=== PATIENT | female | born 1965 | race Caucasian/White ===

== ENCOUNTER 2020-04-02 05:30 | Inpatient (IN) | payer MEDICARE ==
[2020-04-02] MEDS ORDERED: Fentanyl 100 MCG/2 ML VIAL ONE (05:34)
[2020-04-02] MEDS ORDERED: Propofol 1,000 MG/100 ML VIAL IV ONE (05:38)
[2020-04-02 05:43] LABS: Analyzer IN Cardio ER; Base Excess (BEa) -3.3 mEq/L (-2.0 to +3.0); CO2 Tension 52.5 mmHg (35.0-45.0); Calcium, Ionized (arterial) 1.19 mmol/L (1.12-1.30); Carboxyhemoglobin (COHb) 1.5 gm% (0.0-3.0); O2 Tension (PaO2), arterial 147.5 mmHg (80.0-100.0); Potassium - ABG Lab 4.19 mmol/L (3.70-5.30); pH, Arterial 7.28 (7.35-7.45)
[2020-04-02 05:46] LABS: ALV-art Gradient 143.375 mmHg (0-20); Puncture Site LRA
[2020-04-02] MEDS ORDERED: Sodium Bicarb 50 MEQ/50 ML Abboject 8.4% SYRINGE ONE (06:29)
--- NOTE | 2020-04-02 07:16 | PDOC.HHP ---
Hospitalist HPI - History of Present Illness AMS History of Present Illness: Patient is currently intubated/sedated and unable to provide account of events. History is obtained from EHR review and communication with medical providers. Patient with apparent history of anxiety/depression, bipolar disorder, schizophrenia, rediculopathy, substance abuse, prior hospitalizations due to AMS in setting of substance abuse presents as a transfer from outside facility for evaluation of AMS after she presented there for evaluation of drug overdose. Per record based on statement from her daughter "she has as problem taking too many of her prescriptions. It is documented that on initial presentation to outside facility she had a "bag full of a large quantity of different medications, several of which are sedating." Per report when first found there were three open bottles of medications including pregabalin (100 mg), carbamazepime 200 mg & methocarbamol of unknown mg. Patient appeared to be awake but lethargic and unable to follow commands hence she was intubated for airway protection. Initial work up reveals CBC, CMP, urine, chest x-ray, EKG without major abnormality. Urine toxicology is positive for trycyclics and benzos. VS are stable with sedation and mechanical ventilation. Hospitalist ROS - Review of Systems ROS unobtainable: due to endotracheal tube Hospitalist History - Past Medical History Cardiac: reports: [place] Psych: reports: Anxiety, Bipolar, Depression, Schizophrenia Musculoskeletal: reports: Other (Apparent hx of radiculopathy) - Social History Drugs: reports: Other (Possible benzo abuse) - Exam General Appearance: NAD General - other findings: Intubated/sedated Eye: PERRL, anicteric sclera ENT: normocephalic atraumatic, no oropharyngeal lesions, moist mucosa ENT - other findings: Intubated Heart: RRR, no murmur, no gallops, no rubs, normal peripheral pulses Respiratory: CTAB, no wheezes, no rales, no ronchi, normal chest expansion, no tachypnea, normal percussion Respiratory - other findings: Intubated Gastrointestinal: soft, non-distended, normal bowel sounds Extremities: no cyanosis, no clubbing, no edema Neurological - other findings: Sedated Psychiatric - other findings: Sedated/intubated Hospitalist Results - Labs Lab results: ABG pH 7.28 (7.35-7.45) L 04/02/20 05:39 ABG pCO2 52.5 mmHg (35.0-45.0) H 04/02/20 05:39 ABG pO2 147.5 mmHg (80.0-100.0) H 04/02/20 05:39 Additional comment: CBC, CMP reviewed; no major concerning findings Hospitalist H&P A/P - Plan Plan: A/P: Patient with PMH of anxiety/depression, bipolar disorder, possible schizophrenia & substance abuse presents intubated for airway protection in setting of drug overdose. # Toxic encephalopathy: In setting of substance abuse and drug overdose. Patient with similar presentation in the past per review of record. Currently intubated/sedated for airway protection. No significant metabolic abnormality noted on initial work up. Pulmonary cc service has been consulted for assistance with mechanical ventilation. Can likely extubate soon as drug overdose continues to metabolize. Continue with IVFs for now. # Anxiety/depression: Holding all medications. Will have to further investigate purpose of overdose and rule out suicidal intent. Will likely need psychiatry evaluation. # Radiculopathy: Holding all medications. See above. DVT PPX: Lovenox FULL CODE CCT: 45 min
[2020-04-02 07:19] LABS: SARS-CoV-2 NAA Rapid Test Not Detected (NotDetected)
[2020-04-02] MEDS: Sodium Chloride 0.9% 1,000 ML IV SCH ×2 (07:56→20:19)
[2020-04-02] MEDS ORDERED: Morphine 2 MG/ML VIAL SLOW IVP PRN (08:00)
[2020-04-02] MEDS ORDERED: DISCONTINUE PREVIOUS NARCOTIC PAIN MEDICATIONS AND BENZODIAZEPINES FS SCH (08:00)
[2020-04-02] MEDS ORDERED: Propofol BOLUS 1,000 MG/100 ML VIAL IV PRN (08:00)
[2020-04-02] MEDS ORDERED: Lorazepam 2 MG/ML VIAL SLOW IVP PRN (08:00)
[2020-04-02] MEDS ORDERED: Propofol 1,000 MG/100 ML VIAL IV PRN (08:00)
[2020-04-02] MEDS ORDERED: fentaNYL Citrate/PF 2,000 MCG in Sodium Chloride 0.9% 60 ML IV SCH (08:00)
[2020-04-02] MEDS ORDERED: Fentanyl BOLUS 250 ML IVPB PRN (08:00)
--- NOTE | 2020-04-02 08:41 | RAD ---
PORTABLE CHEST 1 VIEW: Date: 04/02/2020 Time: 0521 hours HISTORY: Respiratory failure. FINDINGS/IMPRESSION: There has been interval placement of a nasogastric tube with tip in the projection of the gastric fun dus since earlier exam at 0413 hours same date. Endotracheal tube remains in place. There is mild sca rring versus atelectatic change in the lingula. No lobar consolidation, pneumothoraces, or large effu sions are seen. POS: OFF
[2020-04-02] MEDS: Enoxaparin Sodium 40 MG/0.4 ML SYRINGE SC SCH (10:04)
--- NOTE | 2020-04-02 15:15 | CON ---
DATE OF CONSULTATION: 04/02/2020 DIAGNOSIS: Overdose. HISTORY OF PRESENT ILLNESS: Ms. Barillas is a 54-year-old female, who was transferred from an outside facility with altered mental status. The exact preceding events are unclear, but apparently, she was found to be unresponsive by some person, who notified the EMS. Upon their arrival, the patient was lethargic, could not answer questions. Medications found near her included bottles of pregabalin, carbamazepine, and methocarbamol. Exact number ingested is unknown. She was transferred to the [facility], at which time, her GCS was reported to be 8. She was intubated for airway protection. I have not been able to speak to the family, but reportedly this is a pattern she has had before with prior overdose ingestions. This includes a prior admission here at [facility] in February 2017 and history and physical at that time described events prior to that. The cause for this event is unknown. Family is not available at this time. I have reviewed the available medical record. SOCIAL HISTORY: The patient is a 54-year-old female. Previous record has noted history of tobacco abuse. ALLERGIES: SHE HAS A REPORTED INTOLERANCE TO PENICILLIN. MEDICATIONS: Her home medication list is reported to include; 1. Lyrica 100 mg daily. 2. Methocarbamol 500 mg daily. 3. Carbamazepine 600 mg b.i.d. 4. Olanzapine 15 mg daily. 5. Fluconazole 100 mg daily. 6. Valacyclovir 2000 mg b.i.d. 7. Baclofen 20 mg t.i.d. 8. Meloxicam 7.5 mg daily. 9. ProAir p.r.n. 10. Diphenhydramine p.r.n. I am not sure how many of these medicines are on her active medication list versus the historical record. PAST HISTORY: Remarkable for history of multisubstance abuse including overdose events, anxiety, bipolar disease, schizophrenia, spinal stenosis with radiculopathy. She has smoking history with unknown COPD. There is no known history of cardiac disease, kidney or liver disease. There is no known history of malignancy or stroke. REVIEW OF SYSTEMS: Unobtainable due to her intubated status. FAMILY HISTORY: Unobtainable/noncontributory. PHYSICAL EXAMINATION: VITAL SIGNS: Current blood pressure 129/78, heart rate 74, respiratory rate 28, and saturation 99%. GENERAL: She is orally intubated. Eyes are open and she will follow simple commands including gripping her hands and moving of her feet. I cannot get her to nod or shake her head to answer questions. HEENT: Pupils are reactive. Oropharynx cannot be evaluated due to endotracheal tube. NECK: Shows no adenopathy or JVD. LUNGS: Show rhonchi. She has very quiet wheezes . HEART: Regular rate and rhythm. There is no murmur. ABDOMEN: Soft. There is no organomegaly. Bowel sounds are normal. EXTREMITIES: There is no edema. NEUROLOGIC: She has no focal neurologic findings. LABORATORY DATA: Blood gas on the ventilator showed a pH of 7.28 with CO2 of 52, pO2 of 145 and bicarbonate of 24. Her lithium level is reported at less than 0.1. COVID test was negative. She is reported to have had lab at an outside facility, but I do not have access to that. IMPRESSION: 1. Overdose, presumed multisubstance. The patient is reported to have had open bottles of lithium, carbamazepine, and pregabalin are presumed most likely since the bottles were open, but her lithium level is low. She is awake enough to at least respond somewhat appropriately and we will pursue weaning attempts. 2. History of bipolar disease and schizophrenia. 3. History of lumbar stenosis with chronic pain. 4. History of tobacco abuse. PLAN: She is admitted currently to the intensive care unit, receiving ventilatory support. She is now awakening and will follow simple commands. I have switched her to spontaneous breathing mode and she has spontaneous efforts of as much as 750. Oxygen saturation is good. She is not using accessory muscles. There is no obvious consolidation on her x-ray. I will move toward extubating her this afternoon. She is certainly going to need further psychiatric assessment, possibly to include inpatient treatment following this hospitalization. Critical care, 35 minutes. Job ID: [id number]
[2020-04-02] MEDS ORDERED: Mirtazapine 30 MG TAB PO SCH (21:00)
[2020-04-02] MEDS ORDERED: clonazePAM 1 MG TAB PO SCH (21:00)
[2020-04-02] MEDS ORDERED: Ondansetron PF 4 MG/2 ML Vial IVP PRN (21:17)
[2020-04-03 04:00] LABS: Band 3 % (5-11); Hemoglobin 13.2 g/dL (12.0-16.0); Lymphocytes 6 % (21-51); MDiff Complete? YES; Mean Corpuscular HGB CONC 32.4 g/dL (32.0-36.0); Mean Corpuscular Hemoglobin 31.5 pg (27.0-31.0); Mean Corpuscular Volume 97.3 fL (78.0-98.0); Mean Platelet Volume 7.4 fL (7.4-10.4); Monocytes 9 % (0-10); Neutrophil 82 % (42-75); Platelet Count 161 thou/uL (130-400); Platelet Morphology Comment Appears Adequate; RBC Morphology Normal; Red Blood Cell (RBC) Count 4.17 mill/uL (4.20-5.40); White Blood Cell (WBC) Count 9.1 thou/uL (4.8-10.8)
[2020-04-03 04:10] LABS: ALT (SGPT) 11 U/L (8-55); AST (SGOT) 13 U/L (5-34); Albumin 3.3 g/dL (3.5-5.0); Alkaline Phosphatase 110 U/L (40-110); Anion Gap 14 mmol/L (10-20); BUN (Urea Nitrogen) 12 mg/dL (9.8-20.1); Bilirubin, Total 0.3 mg/dL (0.2-1.2); CK (CPK) 62 U/L (29-168); Calc. Creatinine Clearance 122 mL/min (70-130); Calcium 8.3 mg/dL (7.8-10.44); Carbon Dioxide 24 mmol/L (22-29); Chloride 108 mmol/L (98-107); Globulin 2.3 g/dL (2.4-3.5); Glucose 114 mg/dL (70-105); Potassium 4.2 mmol/L (3.5-5.1); Protein, Total 5.6 g/dL (6.0-8.3); Sodium 142 mmol/L (136-145)
[2020-04-03] MEDS: Acetaminophen 325 MG TAB PO PRN ×3 (04:28→17:10)
[2020-04-03 06:09] VITALS: BMI 29.7
[2020-04-03] MEDS: lamoTRIgine 100 MG TAB PO SCH ×2 (07:09→08:25)
[2020-04-03] MEDS: carBAMazepine 200 MG TAB PO SCH ×2 (07:09→08:25)
[2020-04-03] MEDS: Enoxaparin Sodium 40 MG/0.4 ML SYRINGE SC SCH (08:25)
[2020-04-03] MEDS ORDERED: PARoxetine 20 MG TAB PO SCH ×2 (09:00)
--- NOTE | 2020-04-03 09:28 | PDOC.HOSPP ---
- Subjective Encounter Date: 04/03/20 Encounter Time: 11:20 Subjective: Patient states she had some nausea right after the extubation, some headache right now. No other complaints. Patient denies overdose. States she doesn't remember what happened last night. Denies taking any meds but was found surrounded by pill bottles. History of previous admissions for overuse of Benzodiazepines and tricyclics. - Objective Vital Signs & Weight: Vital Signs (12 hours) Temp Pulse Ox 04/03/20 08:00 97 04/03/20 07:00 98.1 F 04/03/20 04:00 97.9 F 04/03/20 00:00 97.9 F 98 Weight Weight 173 lb 8.061 oz Most Recent Monitor Data Heart Rate from ECG 61 NIBP 109/80 NIBP BP-Mean 89 Respiration from ECG 16 SpO2 97 I&O: 04/02/20 04/03/20 04/04/20 06:59 06:59 06:59 Intake Total 1796 90 Output Total 1230 Balance 566 90 Result Diagrams: 04/03/20 03:32 04/03/20 03:32 Additional Labs: Accuchecks 04/02/20 20:06 POC Glucose 97 Hospitalist ROS - Review of Systems Constitutional: denies: fever, chills Respiratory: denies: cough, shortness of breath Cardiovascular: denies: chest pain, palpitations Gastrointestinal: denies: vomiting, abdominal pain - Medication Medications: Active Medications Generic Name Dose Route Start Last Admin Trade Name Freq PRN Reason Stop Dose Admin Acetaminophen 650 mg 04/03/20 04:19 04/03/20 04:28 Acetaminophen 325 Mg Tab PO 650 mg Q4H PRN Administration Headache/Fever/Mild Pain (1-3) Carbamazepine 200 mg 04/02/20 21:00 04/03/20 08:25 Carbamazepine 200 Mg Tab PO 200 mg BID EUGENE Administration Clonazepam 2 mg 04/02/20 21:00 04/02/20 21:29 Clonazepam 1 Mg Tab PO 2 mg HS EUGENE Administration Enoxaparin Sodium 40 mg 04/02/20 09:00 04/03/20 08:25 Enoxaparin Sodium 40 Mg/0.4 Ml Syringe SC 40 mg 0900 EUGENE Administration Sodium Chloride 1,000 mls @ 75 mls/hr 04/02/20 07:30 12/13/20 20:19 Normal Saline 0.9% IV 1,000 mls .[id number] EUGENE Administration Lamotrigine 200 mg 04/02/20 21:00 04/03/20 08:25 Lamotrigine 100 Mg Tab PO 200 mg BID EUGENE Administration Mirtazapine 30 mg 04/02/20 21:00 04/03/20 07:09 Mirtazapine 30 Mg Tab PO Not Given HS EUGENE Ondansetron HCl 4 mg 04/02/20 21:17 04/02/20 21:25 Ondansetron Pf 4 Mg/2 Ml Vial IVP 4 mg Q6H PRN Administration Nausea/Vomiting Paroxetine HCl 60 mg 04/03/20 09:00 04/03/20 08:25 Paroxetine 20 Mg Tab PO 60 mg DAILY EUGENE Administration - Exam General Appearance: NAD, awake alert ENT: moist mucosa Heart: RRR, no murmur, no gallops, no rubs Respiratory: CTAB, no wheezes, no rales, no ronchi Gastrointestinal: soft, non-tender, non-distended, normal bowel sounds Psychiatric: A&O x 3 Hosp A/P - Plan A/P: Patient with PMH of anxiety/depression, bipolar disorder, possible schizophrenia & substance abuse presents intubated for airway protection in setting of drug overdose. # Toxic encephalopathy: In setting of substance abuse and drug overdose. Patient with similar presentation in the past per review of record. Successfully extubated and medically stable for [facility] eval. Patient UDS positive for benzos and tricyclics which is similar to previous admissions. # Acute respiratory failure due to overdose: resolved, extubated and breathing well on room air # Anxiety/depression: Holding all medications. [facility] evaluation now that medically clear. # Radiculopathy: Holding all medications. See above. DVT PPX: Lovenox FULL CODE
--- NOTE | 2020-04-03 09:47 | PRG ---
DATE OF SERVICE: SUBJECTIVE: This morning, she is awake, alert, and responsive. She was extubated. She is doing well. Denies any pain or discomfort. She wants to go home. She took overdose of multi-substance. OBJECTIVE: VITAL SIGNS: Temperature 98, pulse 64, respiratory rate CHEST: No wheezing. No crackles. CARDIAC: Normal S1, S2. No gallops. ABDOMEN: Soft. IMPRESSION: Overdose and respiratory failure, improved. PLAN: She can be transferred out of the ICU. She has a history of schizophrenia, is ongoing [facility] evaluation. Diet and PT are being ordered. Job ID: [id number]
[2020-04-03] MEDS: Sodium Chloride 0.9% 1,000 ML IV SCH (10:52)
[2020-04-03 16:32] VITALS: BP 107/71; TEMP 97.7
--- NOTE | 2020-04-04 14:31 | DIS ---
DATE OF ADMISSION: 04/02/2020 DATE OF DISCHARGE: 04/03/2020 PRIMARY CARE PHYSICIAN: Ria Vega. REASON FOR ADMISSION: Drug overdose with respiratory depression and intubation. DIAGNOSES AT DISCHARGE: 1. Drug overdose, unintentional, resolved. 2. Respiratory failure, resolved. 3. Chronic anxiety and depression. 4. Chronic radiculopathy. 5. Bipolar disorder. 6. Possible schizophrenia. PROCEDURES: Endotracheal intubation and later extubated. CONSULTATIONS: Pulmonology, Dr. Steiner. SUMMARY OF HOSPITAL COURSE: This is a 54-year-old white female with a known history of anxiety, depression, bipolar, and chronic pain, on multiple medications at home including benzodiazepines and tricyclic antidepressants. The patient had a history of some previous episodes of overdose on these that were apparently unintentional, last time was in 2017. The patient was found down at home with pill bottle surrounding her and was unresponsive. She was brought into the ER where she was not maintaining her airway, so she was intubated for airway protection. She was observed overnight and was easily extubated the next day after medicines had worn off. She did test positive for benzodiazepines and tricyclics in her urine. She was found with a lithium medication bottle next to her. However, there was no lithium in her system. This apparently was belonged to her mother and she helps to give her medications. After waking, the patient denies any history of recent depression, any history of suicidal ideation, and no intention to hurt herself. She does not remember the event or what happened. [facility] was consulted after she was medically stable. They did talk to her daughter and her mother both of whom said that the patient has not been depressed or expressed any suicidal thoughts, but the patient has very poor memory and that she might have taken her medicines twice. The patient was ambulating well with a walker, which she has at home with physical therapy and was eager to be discharged. She was cleared to be discharged by [facility] with the safety plan and she is being discharged home with family. DISCHARGE MANAGEMENT: Discharged home. ACTIVITY: As tolerated. Ambulating with walker. DIET: Healthy heart diet. FOLLOWUP: With [facility] as directed with primary care physician later this week. DISCHARGE MEDICATIONS: 1. Tegretol 200 mg twice a day. 2. Clonazepam 2 mg at night. 3. Lamotrigine 200 mg twice a day. 4. Mirtazapine 30 mg at night. 5. Paroxetine 60 mg daily. 6. Clopidogrel 75 mg daily. 7. Flexeril 10 mg 3 times a day. 8. Furosemide 40 mg daily. 9. Ibuprofen as needed. 10. Metoprolol/hydrochlorothiazide 50/25 mg one tablet daily. 11. Lyrica 100 mg 3 times a day. 12. Tramadol as needed. 13. Trazodone 50 mg at night. Job ID: [id number]
--- NOTE | 2020-04-08 16:27 | EKG ---
Test Reason : EMERGENCY Blood Pressure : / mmHG Vent. Rate : 058 BPM Atrial Rate : 058 BPM P-R Int : 164 ms QRS Dur : 084 ms QT Int : 430 ms P-R-T Axes : 075 074 059 degrees QTc Int : 422 ms Sinus bradycardia Otherwise normal ECG Confirmed by VIK Sheikh, ANGEL ([id number]), staff editor HARSHA العراقي ([id number]) on 04/08/2020 4:27:40 PM Referred By: Confirmed By:ANGEL CHERY M.D.
== END 2020-04-03 19:40 | disposition home or self-care (01) | DRG 917 ==
LOC: ERS 05:30 → CCU 06:40 → T4-B 04-03 11:11
PROVIDERS: ADMIT Internal Medicine; ATTEND Emergency Medicine
PROC: 0D9670Z Drainage of Stomach with Drainage Device, Via Natural or Artificial Opening (ICD-10-PCS; principal; 2020-04-02)
PROC: 5A1935Z Respiratory Ventilation, Less than 24 Consecutive Hours (ICD-10-PCS; 2020-04-02)
PROC: 0BH17EZ Insertion of Endotracheal Airway into Trachea, Via Natural or Artificial Opening (ICD-10-PCS; 2020-04-02)
DX: T42.1X1A Poisoning by iminostilbenes, accidental (unintentional), initial encounter (principal); J96.01 Acute respiratory failure with hypoxia; G92 Toxic encephalopathy; I10 Essential (primary) hypertension; F31.9 Bipolar disorder, unspecified; F41.9 Anxiety disorder, unspecified; M54.10 Radiculopathy, site unspecified; F20.9 Schizophrenia, unspecified; F17.210 Nicotine dependence, cigarettes, uncomplicated; I25.2 Old myocardial infarction; Z88.0 Allergy status to penicillin; Z79.899 Other long term (current) drug therapy; Z20.828 Contact with and (suspected) exposure to other viral communicable diseases; Y92.009 Unspecified place in unspecified non-institutional (private) residence as the place of occurrence of the external cause; T39.8X1A Poisoning by other nonopioid analgesics and antipyretics, not elsewhere classified, accidental (unintentional), initial encounter; T48.1X1A Poisoning by skeletal muscle relaxants [neuromuscular blocking agents], accidental (unintentional), initial encounter; Z79.1 Long term (current) use of non-steroidal anti-inflammatories (NSAID)
CPT/HCPCS: 36415; 36416; 36600; 71045; 80053; 80178; 82550; 82805; 85007; 85027; 93005; 94002; 96365; 96366; 96374; 96375; 99292; J1650; J2405; J2704; J3010; J3490; U0002

== ENCOUNTER 2020-04-22 21:04 | Inpatient (IN) | payer MEDICARE ==
[2020-04-22] MEDS ORDERED: Naloxone HCl 2 mg/2 ml Syringe ONE (21:21)
--- NOTE | 2020-04-22 21:34 | RAD ---
EXAM: CHEST ONE VIEW HISTORY: Patient found unresponsive. COMPARISON: 04/02/2020 FINDINGS: Endotracheal tube and nasogastric tubes are no longer visualized. The cardiac silhouette is within no rmal limits for portable technique. Minimal patchy past seen lateral aspect left midlung zone which could be related to focal area of pneumonitis. Persistent linear densities are seen in the left lung base probably due to mild scarring. The right lung is clear. No other interval change IMPRESSION: Small patchy opacity lateral left midlung zone which may represent focal area of pneumonitis. Follow- up evaluation is recommended.
[2020-04-22 21:53] LABS: #Basophils 0.1 thou/uL (0.0-0.2); #Eosinphils 0.2 thou/uL (0.0-0.7); #Lymphocytes 1.2 thou/uL (1.20-3.40); #Monocytes 0.5 thou/uL (0.11-0.59); #Neutrophils 3.8 thou/uL (1.40-6.50); %Basophils 1.3 % (0.0-1.0); %Eosinophils 3.6 % (0.0-10.0); %Lymphocytes 20.9 % (21.0-51.0); %Monocytes 8.2 % (0.0-10.0); Hemoglobin 12.8 g/dL (12.0-16.0); Mean Corpuscular HGB CONC 32.1 g/dL (32.0-36.0); Mean Corpuscular Hemoglobin 31.1 pg (27.0-31.0); Mean Corpuscular Volume 96.7 fL (78.0-98.0); Mean Platelet Volume 7.6 fL (7.4-10.4); Platelet Count 179 thou/uL (130-400); Red Blood Cell (RBC) Count 4.13 mill/uL (4.20-5.40); White Blood Cell (WBC) Count 5.8 thou/uL (4.8-10.8)
[2020-04-22 21:57] LABS: INR-International Normal Ratio 0.9; Prothrombin Time 12.8 sec (12.0-14.7)
[2020-04-22 21:58] LABS: PTT 29.4 sec (22.9-36.1)
[2020-04-22 22:01] LABS: Bilirubin Negative (Negative); Blood, Urine Negative (Negative); Clarity Clear (Clear); Glucose, Urine (Dipstick) Normal (Negative); Ketone, Urine Negative (Negative); Leukocyte Negative Leu/uL (Negative); Nitrite Negative (Negative); Protein, Urine (Dipstick) Negative (Neg-Trace); Specific Gravity, Urine 1.018 (1.002-1.036); Urobilinogen Normal mg/dL (Less than 2); pH, Urine 5.5 (5.0-9.0)
[2020-04-22 22:11] LABS: Amphetamine Not Detected (NotDetected); Barbiturates Screen Not Detected (NotDetected); Benzodiazepine Screen Detected (NotDetected); Cocaine Metabolite Screen Not Detected (NotDetected); Medtox Control Line Valid? VALID (VALID); Medtox Reader # READER 4; Methadone Not Detected (NotDetected); Methamphetamine Not Detected (NotDetected); Opiate Screen Not Detected (NotDetected); Oxycodone Screen Not Detected (NotDetected); Phencyclidine (PCP) Not Detected (NotDetected); THC/Cannabinoid Screen Not Detected (NotDetected); Tricyclic Screen Not Detected (NotDetected)
[2020-04-22 22:12] LABS: ALT (SGPT) 10 U/L (8-55); AST (SGOT) 13 U/L (5-34); Albumin 3.9 g/dL (3.5-5.0); Alkaline Phosphatase 114 U/L (40-110); Anion Gap 14 mmol/L (10-20); BUN (Urea Nitrogen) 16 mg/dL (9.8-20.1); Bilirubin, Total 0.2 mg/dL (0.2-1.2); Calc. Creatinine Clearance 0 mL/min (70-130); Calcium 8.5 mg/dL (7.8-10.44); Carbon Dioxide 28 mmol/L (22-29); Chloride 103 mmol/L (98-107); Globulin 2.4 g/dL (2.4-3.5); Glucose 86 mg/dL (70-105); Magnesium 2.2 mg/dL (1.6-2.6); Potassium 3.1 mmol/L (3.5-5.1); Protein, Total 6.3 g/dL (6.0-8.3); Sodium 142 mmol/L (136-145)
[2020-04-22 22:21] LABS: Acetaminophen Less than 6.0 mcg/mL (10.0-30.0); Alcohol Less than 10 mg/dL (Less than 10); Salicylate 19.7 mg/dL (15.0-30.0)
--- NOTE | 2020-04-22 22:28 | CT ---
CT HEAD WITHOUT IV CONTRAST COMPARISON: 07/02/2019 obtained from [facility] HISTORY: Altered mental status TECHNIQUE: Axial CT imaging at 5 mm intervals from vertex through skull base without contrast FINDINGS: There is a subcentimeter low-density focus within the anterior aspect right temporal lobe which may r epresent a tiny perineural cyst. This is stable compared to study in 2017. There is a small low-density focus seen within the left anterior frontal subcortical white matter which is unchanged f rom the prior study and likely attributable to chronic small vessel ischemic change. There is no evidence of an acute infarction, hemorrhage, mass effect, or midline shift. The ventricular system is normal in size, shape, and position. Skull base has a normal CT appearance. Visualized paranasal sinuses are clear. Osseous structures appear intact.No depressed calvarial fracture is seen. IMPRESSION: 1. No acute intracranial abnormality demonstrated.
[2020-04-22 23:14] LABS: SARS-CoV-2 NAA Rapid Test Not Detected (NotDetected)
[2020-04-23] MEDS ORDERED: Electrolyte Replacement Protocol 1 EACH FS SCH (02:00)
[2020-04-23] MEDS ORDERED: Potassium Chloride 10 MEQ in Premix Bag 1 BAG IVPB SCH (03:45)
--- NOTE | 2020-04-23 03:50 | PDOC.HHP ---
Hospitalist HPI - History of Present Illness Altered mental status History of Present Illness: This is a 54-year-old female patient with a history of [place], unintentional drug overdose, bipolar disorder and schizophrenia was brought in by EMS on account of altered mental status. Of note, she was admitted and discharged on 04/03/2020 on account of drug overdose and respiratory failure requiring endotracheal intubation. Patient was altered and not oriented at the time of my evaluationhe cannot provide any history. According to the records the mother found her unresponsive and breathing and activated EMS. [facility] ambulance[facility] given Narcan which she was unresponsive prior to bringing her here. They noted she was satting at 94% on 3 L. They were concerned that she may have taken overdose of her medications including her benzodiazepines. On arrival blood pressure was 142 103, pulse 73, respirations 21 temperature 97.8 saturating 87 on nonrebreather. He subsequently improved with repeated IV Narcan given here. Covid test was negative. TSH was 0.36, UDS detected benzodiazepines. BMP showed hypokalemia of 3.1, CBC was generally unremarkable. Troponin was negative. CT scan of the head showed no acute intracranial event. Chest x-ray shows small patchy opacities in the left lateral midlung zone which may represent focal areas of pneumonitis. At the time of evaluation she was somnolent with only opening eyes but not answer questions. Saturation was within normal range on room air. Vitals were generally stable. Hospitalist ROS - Review of Systems ROS unobtainable: due to mental status Hospitalist History - Past Medical History Psych: reports: Anxiety, Bipolar, Depression, Schizophrenia Musculoskeletal: reports: Other (Apparent hx of radiculopathy) Other Medical History: Accidental drug overdose, LA, bipolar disorder, schizophrenia, anxiety disorder - Past Surgical History Past Surgical History: reports: no pertinent history - Family History Family History: reports: no pertinent history - Social History Smoking Status: Current every day smoker (Of note patient was said to have too many problems taking her medications) Alcohol: reports: None Drugs: reports: Other (Possible benzo abuse) Hospitalist Results - Labs Result Diagrams: 04/22/20 21:37 04/22/20 21:37 Lab results: WBC 5.8 thou/uL (4.8-10.8) 04/22/20 21:37 Hgb 12.8 g/dL (12.0-16.0) 04/22/20 21:37 Hct 39.9 % (36.0-47.0) 04/22/20 21:37 MCV 96.7 fL (78.0-98.0) 04/22/20 21:37 Plt Count 179 thou/uL (130-400) 04/22/20 21:37 Neutrophils % 66.0 % (42.0-75.0) 04/22/20 21:37 Sodium 142 mmol/L (136-145) 04/22/20 21:37 Potassium 3.1 mmol/L (3.5-5.1) L 04/22/20 21:37 Chloride 103 mmol/L (98-107) 04/22/20 21:37 Carbon Dioxide 28 mmol/L (22-29) 04/22/20 21:37 BUN 16 mg/dL (9.8-20.1) 04/22/20 21:37 Creatinine 0.83 mg/dL (0.6-1.1) 04/22/20 21:37 Glucose 86 mg/dL (70-105) 04/22/20 21:37 Lactic Acid 0.8 mmol/L (0.5-2.2) 04/22/20 21:37 Calcium 8.5 mg/dL (7.8-10.44) 04/22/20 21:37 Total Bilirubin 0.2 mg/dL (0.2-1.2) 04/22/20 21:37 AST 13 U/L (5-34) 04/22/20 21:37 ALT 10 U/L (8-55) 04/22/20 21:37 Alkaline Phosphatase 114 U/L (40-110) H 04/22/20 21:37 Troponin I Less than 0.010 ng/mL (< 0.028) 04/22/20 21:37 Serum Total Protein 6.3 g/dL (6.0-8.3) 04/22/20 21:37 Albumin 3.9 g/dL (3.5-5.0) 04/22/20 21:37 Urine Ketones Negative mg/dL (Negative) 04/22/20 21:47 Urine Blood Negative (Negative) 04/22/20 21:47 Urine Nitrite Negative (Negative) 04/22/20 21:47 Ur Leukocyte Esterase Negative Howie/uL (Negative) 04/22/20 21:47 Hospitalist H&P A/P - Plan Plan: This a 54-year-old female patient with previous history of substance abuse who p resents today with altered mental status with concerns for benzodiazepine/possible opioid overdose. Improved with naloxone Acute encephalopathy Likely secondary substance abuse CT head negative, she is not septic and TSH is 0.36. We will check B12 She still somnolent but however vitals are stable We will admit and monitor overnight Suspected drug overdose Opioid versus benzodiazepine Received Narcan with improvement Continue monitoring No need for intubation at the moment Hypokalemia Potassium 3.1 Magnesium 2.2 Replace potassium per protocol. Bipolar disorder Resume home meds once verified. Schizophrenia CODE STATUSfull code DVT prophylaxisLovenox
[2020-04-23 07:01] LABS: #Eosinphils 0.2 thou/uL (0.0-0.7); #Lymphocytes 0.9 thou/uL (1.20-3.40); #Monocytes 0.4 thou/uL (0.11-0.59); #Neutrophils 2.9 thou/uL (1.40-6.50); %Basophils 0.9 % (0.0-1.0); %Monocytes 8.2 % (0.0-10.0); %Neutrophils 65.9 % (42.0-75.0); Hemoglobin 12.7 g/dL (12.0-16.0); Mean Corpuscular HGB CONC 31.2 g/dL (32.0-36.0); Mean Corpuscular Hemoglobin 30.3 pg (27.0-31.0); Mean Corpuscular Volume 97.2 fL (78.0-98.0); Mean Platelet Volume 8.1 fL (7.4-10.4); Platelet Count 181 thou/uL (130-400); RBC Distribution Width 12.1 % (11.5-14.5); White Blood Cell (WBC) Count 4.3 thou/uL (4.8-10.8)
[2020-04-23 07:15] LABS: Anion Gap 16 mmol/L (10-20); BUN (Urea Nitrogen) 11 mg/dL (9.8-20.1); Calc. Creatinine Clearance 120 mL/min (70-130); Calcium 8.3 mg/dL (7.8-10.44); Carbon Dioxide 25 mmol/L (22-29); Chloride 105 mmol/L (98-107); Glucose 81 mg/dL (70-105); Potassium 3.3 mmol/L (3.5-5.1); Sodium 143 mmol/L (136-145)
[2020-04-23] MEDS ORDERED: Potassium Chloride 40 MEQ in Sodium Chloride 0.9% 250 ML 250 ML IVPB SCH (07:30)
[2020-04-23] MEDS ORDERED: Enoxaparin Sodium 40 MG/0.4 ML SYRINGE ONE (10:16)
[2020-04-23] MEDS: Enoxaparin Sodium 40 MG/0.4 ML SYRINGE SC SCH (10:30)
[2020-04-23] MEDS: Acetaminophen/Codeine 30-300mg Tablet PO PRN ×2 (16:14→23:45)
[2020-04-23 16:36] VITALS: BMI 27.5
[2020-04-23] MEDS ORDERED: carBAMazepine 200 MG TAB PO SCH (18:30)
[2020-04-23] MEDS: Pregabalin 50 MG CAP PO SCH (22:02)
[2020-04-23] MEDS: clonazePAM 1 MG TAB PO PRN (22:09)
[2020-04-24] MEDS: carBAMazepine 200 MG TAB PO SCH ×2 (09:25→16:27)
[2020-04-24] MEDS: PARoxetine 20 MG TAB PO SCH (09:25)
[2020-04-24] MEDS: Furosemide 40 MG TAB PO SCH (09:25)
[2020-04-24] MEDS: Pregabalin 50 MG CAP PO SCH ×3 (09:26→21:00)
[2020-04-24] MEDS: Cholecalciferol 1,000 UNITS (25 MCG) TAB PO SCH (09:26)
[2020-04-24] MEDS: Folic Acid 1 MG TAB PO SCH (09:26)
[2020-04-24] MEDS: Enoxaparin Sodium 40 MG/0.4 ML SYRINGE SC SCH (09:27)
[2020-04-24] MEDS: Acetaminophen/Codeine 30-300mg Tablet PO PRN ×3 (09:37→23:39)
[2020-04-24] MEDS: clonazePAM 1 MG TAB PO PRN (21:00)
--- NOTE | 2020-04-24 22:19 | PDOC.DS.DS ---
Provider - Provider Date of Admission: 04/22/20 23:37 Date of Discharge: 04/24/20 Admitting Provider: Sarbjit Anderson MD Consultations: Other ([facility]) Primary Care Physician: OUT OF TOWN Course - Hospital Course Hospital Course: Patient is a 54-year-old female with chronic low back pain, bipolar disorder, schizophrenia with recent admission for overdose requiring mechanical ventilation presented to the emergency room with altered mentation. Please refer to the history and physical for further details. The patient was admitted to the hospital with a diagnosis of drug overdose which was an intentional. CT scan of the head was negative for acute findings. Chest x-ray was negative for definite infiltrate. Patient was monitored closely. Her mentation gradually improved. On the day of discharge she was evaluate by [facility] and has been cleared for discharge. Patient was advised to follow-up with the primary care physician next week. 24 hour supervision is recommended. Final diagnosis: Unintentional drug overdose due to polypharmacy Encephalopathy due to above Hypokalemia Bipolar disorder Schizophrenia Ongoing tobacco dependence Recent hospitalization for drug overdose CKD stage II - Labs Lab Results: 04/23/20 06:21 04/23/20 06:21 Abnormal Lab Results - Last 48 hrs 04/22/20 21:37: Potassium 3.1 L, Alkaline Phosphatase 114 H 04/22/20 21:37: Acetaminophen Less than 6.0 L 04/22/20 21:47: U Benzodiazepines Scrn Detected H 04/23/20 06:21: Potassium 3.3 L 04/23/20 06:21: WBC 4.3 L, MCHC 31.2 L, Lymphocytes # 0.9 L Microbiology - Entire Visit 04/22/20 21:47 Urine Straight Catheter Urine Culture - Final NO GROWTH AT 36 HOURS - Physical Exam Vitals: Vital Signs (12 hours) Temp Pulse Resp BP Pulse Ox 04/24/20 20:00 97.6 F 66 14 97/52 L 93 L 04/24/20 15:21 98.5 F 70 16 95/53 L 93 L 04/24/20 11:18 97.6 F 69 18 103/70 94 L Weight Admit Weight 180 lb Weight 160 lb 6.4 oz Physical Exam: The patient was seen and examined on the day of discharge. Plan - Discharge Medications Home Medications: Medication Instructions Recorded Confirmed Type Ibuprofen 800 mg PO Q6HR PRN 09/05/16 04/23/20 History carBAMazepine [Tegretol] 200 mg PO BID 09/05/16 04/23/20 History Furosemide [Lasix] 40 mg PO DAILY 04/02/20 04/23/20 History PARoxetine HCl 60 mg PO DAILY 04/02/20 04/23/20 History Pregabalin 100 mg PO TID 04/02/20 04/23/20 History clonazePAM [Clonazepam] 2 mg PO HS PRN 04/02/20 04/23/20 History traMADol HCl [Tramadol HCl] 50 mg PO Q6HR PRN 04/02/20 04/23/20 History Calcium Carbonate [Tums Smoothies 2 tablet PO Q4HR PRN 04/23/20 04/23/20 History Extra Strength] Cholecalciferol (Vitamin D3) 1,000 unit PO DAILY 04/23/20 04/23/20 History [Vitamin D3] Fluticasone/Umeclidin/Vilanter 1 inh PO DAILY 04/23/20 04/23/20 History [Trelegy Ellipta 100-62.5-25] Folic Acid 5 mg PO DAILY 04/23/20 04/23/20 History Melatonin 5 mg PO HS PRN 04/23/20 04/23/20 History Naproxen 500 mg PO Q12HR 04/23/20 04/23/20 History Neomycin/Polymyxin/HC [Cortisporin 3 drop L EAR TID 04/23/20 04/23/20 History Otic Solution] Omeprazole 40 mg PO DAILY 04/23/20 04/23/20 History Potassium Gluconate 2 tab PO BID 04/23/20 04/23/20 History hydrOXYzine HCl [hydrOZYzine HCl] 25 mg PO Q6HR PRN 04/23/20 04/23/20 History Allergies: Penicillins Allergy (Verified 04/23/20 09:07) - Discharge Instructions Discharge Instructions:: BMP/Chest x-ray after 1 week - PCP to arrange/follow Fall precautions 24 hr supervision - Follow up Plan Referrals: [facility] [Outside] - 7 Days [facility] PHYS[facility]IAN,OUT OF [Primary Care Provider] - 7 Days Disposition: HOME Quality - Care Measures CORE MEASURES:: N/A
[2020-04-25] MEDS: Acetaminophen/Codeine 30-300mg Tablet PO PRN (07:33)
[2020-04-25] MEDS: Folic Acid 1 MG TAB PO SCH (07:34)
[2020-04-25] MEDS: Furosemide 40 MG TAB PO SCH (07:35)
[2020-04-25] MEDS: PARoxetine 20 MG TAB PO SCH (07:35)
[2020-04-25] MEDS: Pregabalin 50 MG CAP PO SCH (07:35)
[2020-04-25] MEDS: Cholecalciferol 1,000 UNITS (25 MCG) TAB PO SCH (07:36)
[2020-04-25] MEDS: carBAMazepine 200 MG TAB PO SCH (07:36)
[2020-04-25] MEDS: Enoxaparin Sodium 40 MG/0.4 ML SYRINGE SC SCH (07:36)
[2020-04-25 07:40] VITALS: BP 121/65; TEMP 97.4
== END 2020-04-25 08:32 | disposition home or self-care (01) | DRG 917 ==
LOC: ERS 21:04 → ERHOLD 23:37 → OBSVTOIN 23:37 → 2SE 04-23 14:49
PROVIDERS: ADMIT Student in an Organized Health Care Education/Training Program; ATTEND Internal Medicine
DX: T42.4X1A Poisoning by benzodiazepines, accidental (unintentional), initial encounter (principal); G92 Toxic encephalopathy; Z20.822 Contact with and (suspected) exposure to COVID-19; Z23 Encounter for immunization; E87.6 Hypokalemia; F31.9 Bipolar disorder, unspecified; F20.9 Schizophrenia, unspecified; F17.210 Nicotine dependence, cigarettes, uncomplicated; G89.29 Other chronic pain; M54.5 Low back pain; N18.2 Chronic kidney disease, stage 2 (mild); F41.9 Anxiety disorder, unspecified; I12.9 Hypertensive chronic kidney disease with stage 1 through stage 4 chronic kidney disease, or unspecified chronic kidney disease; Z88.0 Allergy status to penicillin; I25.2 Old myocardial infarction; Z79.899 Other long term (current) drug therapy
CPT/HCPCS: 36415; 51701; 70450; 71045; 80048; 80053; 80306; 80307; 81003; 83605; 83735; 84443; 84484; 85025; 85610; 85730; 87086; 90471; 90732; 93005; 96372; 96374; G0009; G0378; J1650; J2310; J3480; J7050; U0002

== ENCOUNTER 2020-06-08 23:28 | Inpatient (IN) | payer MEDICARE ==
--- NOTE | 2020-06-09 01:18 | PDOC.HHP ---
Hospitalist HOWIE MUSTAFA History of Present Illness: This is a 54-year-old female patient with a history of chronic pain, bipolar disorder, schizophrenia, hypertension and MT was transferred from [place] on account of altered mental status. At the time of my evaluation patient was altered and confused and could not contribute to the history. Most of the history was obtained from the chart and signout to me. She was recently discharged04/24/2020 from here on account of intentional drug overdose and has been here with similar conditions and time requiring mechanical ventilation. Today she was sent to medicine on account of another suspected drug overdose this time with Tylenol 3, clonazepam, methocarbamol and tramadol as these drugs continues were all empty. A GCS at presentation the medicine was 10. Presentation and [facility], her blood pressure was 151/95, pulse 52, temperature 97.6, saturation 97 on 2 L oxygen. Labs showed WBC of 5.6, hemoglobin 12.3 platelets 156, CMP generally unremarkable, urinalysis was positive for nitrates and trace for ketones however no WBC esterase or bacteria noted. Toxicology detected urine opiates however all others were negative. Chest x-ray showed no acute intrathoracic process, head CT showed no acute abnormalities. EKG showed sinus bradycardia rate of 53, normal axis, no ST or T wave changes. She received flumazenil with rapid response and had a repeat dosage prior to her being transferred here for higher level care. At presentation here her blood pressure was 155/92, respiratory 20, pulse 72 and temperature 97.2. She was saturating 93 on 2 L oxygen. She was somnolent h owever protecting her airways. Hospitalist team was consulted to admit. Allergies/Adverse Reactions: Allergy/AdvReac Type Severity Reaction Status Date / Time Penicillins Allergy Verified 04/23/20 09:07 Home Medications: Medication Instructions Recorded Confirmed Type Ibuprofen 800 mg PO Q6HR PRN 09/05/16 06/09/20 History carBAMazepine [Tegretol] 200 mg PO BID 09/05/16 06/09/20 History Furosemide [Lasix] 40 mg PO DAILY 04/02/20 06/09/20 History PARoxetine HCl 60 mg PO DAILY 04/02/20 06/09/20 History clonazePAM [Clonazepam] 2 mg PO HS PRN 04/02/20 06/09/20 History traMADol HCl [Tramadol HCl] 50 mg PO Q6HR PRN 04/02/20 06/09/20 History Calcium Carbonate [Tums Smoothies 2 tablet PO Q4HR PRN 04/23/20 06/09/20 History Extra Strength] Cholecalciferol (Vitamin D3) 1,000 unit PO DAILY 04/23/20 06/09/20 History [Vitamin D3] Fluticasone/Umeclidin/Vilanter 1 inh PO DAILY 04/23/20 06/09/20 History [Trelegy Ellipta 100-62.5-25] Naproxen 500 mg PO Q12HR 04/23/20 06/09/20 History Neomycin/Polymyxin/HC [Cortisporin 3 drop L EAR TID 04/23/20 06/09/20 History Otic Solution] Omeprazole 40 mg PO DAILY 04/23/20 06/09/20 History Acetaminophen W/ Codeine 1 tab PO TID PRN 06/09/20 06/09/20 History [Acetaminophen/Codeine #3] Albuterol Sulfate [Proventil Hfa] 90 mcg INH Q6HR 06/09/20 06/09/20 History Baclofen 20 mg PO TID 06/09/20 06/09/20 History Folic Acid 5 tab PO DAILY 06/09/20 06/09/20 History Melatonin 5 mg PO HS 06/09/20 06/09/20 History OLANZapine [Olanzapine] 15 mg PO HS 06/09/20 06/09/20 History Potassium Chloride 1 tab PO BID 06/09/20 06/09/20 History Past History: PMHx:chronic pain, bipolar disorder, schizophrenia, hypertension and MT PSHx:None of significance FHx:None of significance Social:lives with family. No alcohol, smoke or illicit drug use Hospitalist HPI ROS ROS unobtainable: due to mental status Hospitalist Exam General Appearance: ill appearing Eye: PERRL, anicteric sclera ENT: normocephalic atraumatic Heart: RRR, no murmur, no gallops, no rubs Respiratory: CTAB, wheezes Gastrointestinal: soft, non-distended, normal bowel sounds, tender to palpation Extremities: no cyanosis, no edema Neurological: cranial nerve grossly intact, no weakness Musculoskeletal: normal tone Psychiatric: oriented to person, somnolent Hospitalist Results Result Diagrams: 06/09/20 04:06/09/20 04:29 Hospitalist H&P A/P Plan: This is a 54-year-old female patient with a history of recurrent drug overdoses, presenting today with another episode of drug overdose. Acute encephalopathy Likely secondary to intentional drug overdose We will monitor overnight. Intentional drug overdose Ingested medications suspected to include tramadol, T3, clonazepam, methocarbamol Urine drug screen notes opiates however she responded to flumazenil I talked to poison control and it was suggested to find ingestion time however I called family and nobody picked up. Plan is to check acetaminophen level again and report back if still elevated to get back to poison control Monitor Discussed with poison control [facility] COPD exacerbation Patient wheezing bilaterally is on Trelegy Ellipta We will start duo nebs as needed/scheduled Solu-Medrol Oxygen therapy as needed Schizophrenia Continue on home medications once verified. Bipolar disorder Continue on prescribed medications CODE STATUSto be discussed VT prophylaxisLovenox.
[2020-06-09 02:45] LABS: Acetaminophen Less than 6.0 mcg/mL (10.0-30.0)
[2020-06-09 05:04] LABS: #Basophils 0.1 thou/uL (0.0-0.2); #Eosinphils 0.2 thou/uL (0.0-0.7); #Lymphocytes 0.9 thou/uL (1.20-3.40); #Monocytes 0.6 thou/uL (0.11-0.59); #Neutrophils 9.1 thou/uL (1.40-6.50); %Basophils 0.6 % (0.0-1.0); %Eosinophils 2.1 % (0.0-10.0); %Lymphocytes 8.1 % (21.0-51.0); %Monocytes 5.5 % (0.0-10.0); %Neutrophils 83.7 % (42.0-75.0); Hemoglobin 12.8 g/dL (12.0-16.0); Mean Corpuscular HGB CONC 31.8 g/dL (32.0-36.0); Mean Corpuscular Volume 94.5 fL (78.0-98.0); Mean Platelet Volume 7.3 fL (7.4-10.4); Platelet Count 215 thou/uL (130-400); RBC Distribution Width 12.7 % (11.5-14.5); Red Blood Cell (RBC) Count 4.27 mill/uL (4.20-5.40); White Blood Cell (WBC) Count 10.9 thou/uL (4.8-10.8)
[2020-06-09 05:23] LABS: Anion Gap 14 mmol/L (10-20); BUN (Urea Nitrogen) 11 mg/dL (9.8-20.1); Calc. Creatinine Clearance 0 mL/min (70-130); Calcium 8.3 mg/dL (7.8-10.44); Carbon Dioxide 23 mmol/L (22-29); Chloride 110 mmol/L (98-107); Glucose 82 mg/dL (70-105); Potassium 3.5 mmol/L (3.5-5.1); Sodium 143 mmol/L (136-145)
[2020-06-09 08:26] LABS: ALT (SGPT) 18 U/L (8-55); AST (SGOT) 20 U/L (5-34); Albumin 3.4 g/dL (3.5-5.0); Alkaline Phosphatase 110 U/L (40-110); Bilirubin, Direct 0.1 mg/dL (0.1-0.3); Bilirubin, Total 0.3 mg/dL (0.2-1.2); Protein, Total 5.6 g/dL (6.0-8.3)
[2020-06-09] MEDS ORDERED: Enoxaparin Sodium 40 MG/0.4 ML SYRINGE ONE (09:08)
[2020-06-09] MEDS: Enoxaparin Sodium 40 MG/0.4 ML SYRINGE SC SCH (09:21)
[2020-06-09] MEDS ORDERED: Ketorolac Tromethamine 30 MG/ML VIAL ONE (10:20)
[2020-06-09] MEDS: Ketorolac Tromethamine 30 MG/ML VIAL IVP SCH (10:23)
[2020-06-09 11:28] LABS: SARS-CoV-2 PCR by NAA Not Detected (NotDetected)
[2020-06-09 13:38] VITALS: BMI 29.2
[2020-06-09] MEDS: methylPREDNISolone Sod Succ 40 MG VIAL IVP SCH (16:02)
[2020-06-09] MEDS ORDERED: Ketorolac Tromethamine 30 MG/ML VIAL IVP SCH (17:30)
[2020-06-09] MEDS ORDERED: Acetaminophen 500 MG TAB PO PRN (19:55)
[2020-06-09] MEDS: Ibuprofen 600 MG TAB PO PRN (21:07)
[2020-06-10] MEDS: methylPREDNISolone Sod Succ 40 MG VIAL IVP SCH (02:45)
[2020-06-10] MEDS: Enoxaparin Sodium 40 MG/0.4 ML SYRINGE SC SCH (09:56)
[2020-06-10] MEDS: Ibuprofen 600 MG TAB PO PRN (09:57)
--- NOTE | 2020-06-10 12:33 | PDOC.DS.DS ---
Provider Date of Admission: 06/09/20 00:18 Date of Discharge: 06/10/20 Admitting Provider: Sarbjit Anderson MD Primary Care Physician: OUT OF TOWN Course Hospital Course: 54-year-old man with a history of chronic back pain, COPD was brought to the emergency department obtunded with a concern for drug overdose. Apparently ty sinha has been hospitalized multiple times for similar evens. She could not provide any history at the time of admission. Patient noted to be on Tylenol 3. There was a concern for Tylenol overdose. Her Tylenol level was within normal limits. Patient was placed under observation for monitoring and supportive measures.. Patient placed on the medical floor and treated supportively with IV fluid. Her psychotropic medications were held. Patient work-up the next morning. She is currently alert and oriented. She stated she took extra baclofen dose to control her pain. She denied overdosing on her other medications. Noted patient is on multiple psychotropic medications including hydroxyzine, Klonopin, Robaxin, baclofen, carbamazepine, olanzapine and Paxil. There was a concern for polypharmacy. Robaxin and hydroxyzine has been discontinued for now. Patient stated she sees a pain management physician and had a first spinal injection for pain about 2 weeks ago. Patient educated on polypharmacy and informed her Robaxin and hydroxyzine has been discontinued. She denied any suicidal ideation or any intention to overdose. She has tolerated feeding, she is currently alert and oriented, capable of making informed decisions. I also counseled her on pill count and to utilize a pillbox, to ensure he does not repeat her medications for the day. Patient was wheezing at the point and she was treated for COPD exacerbation with DuoNeb and IV steroid. Vitals are stable, electrolyte s within normal limits. Patient's daughter informed and updated on the current medical condition and plan of care as mentioned above. Patient will be discharged to home in the care of her family. Lab Results: 06/09/20 04:29 06/09/20 04:29 Abnormal Lab Results - Last 48 hrs 06/09/20 02:16: Acetaminophen Less than 6.0 L 06/09/20 04:29: Chloride 110 H 06/09/20 04:29: WBC 10.9 H, MCHC 31.8 L, MPV 7.3 L, Neutrophils % 83.7 H, Lymph ocytes % 8.1 L, Neutrophils # 9.1 H, Lymphocytes # 0.9 L, Monocytes # 0.6 H 06/09/20 07:54: Serum Total Protein 5.6 L, Albumin 3.4 L Vitals: Vital Signs (12 hours) Temp Pulse Resp BP Pulse Ox 06/10/20 12:00 98.0 F 66 18 133/72 100 06/10/20 11:19 82 16 96 06/10/20 08:33 87 16 96 06/10/20 08:00 99 06/10/20 07:35 96.4 F L 70 18 124/67 99 06/10/20 04:00 98.2 F 88 16 130/61 16 L 06/10/20 02:33 96 Weight Weight 170 lb 1.6 oz Physical Exam: The patient was seen and examined on the day of discharge. General Appearance: NAD, awake alert Eye: PERRL, anicteric sclera ENT: normocephalic atraumatic, no oropharyngeal lesions, moist mucosa Neck: supple, no JVD Respiratory: CTAB, no wheezes, no rales Cardiovascular: RRR, no murmur Gastrointestinal: soft, non-tender, non-distended, normal bowel sounds Extremities: no cyanosis, no edema Skin: normal turgor, no rashes Neurological: cranial nerve grossly intact, no focal deficits Musculoskeletal: normal tone, normal strength PSYCH: normal affect, normal behavior, A&O x 3 Problem (1) Metabolic encephalopathy Code(s): G93.41 - METABOLIC ENCEPHALOPATHY Status: Acute (2) Polypharmacy Code(s): Z79.899 - OTHER GEOMETRY TEACHER (CURRENT) DRUG THERAPY Status: Acute (3) Chronic pain syndrome Code(s): G89.4 - CHRONIC PAIN SYNDROME Status: Chronic (4) COPD exacerbation Code(s): J44.1 - CHRONIC OBSTRUCTIVE PULMONARY DISEASE W (ACUTE) EXACERBATION Status: Acute (5) Anxiety Code(s): F41.9 - ANXIETY DISORDER, UNSPECIFIED Status: Chronic (6) Depression Code(s): F32.9 - MAJOR DEPRESSIVE DISORDER, SINGLE EPISODE, UNSPECIFIED Status: Chronic (7) Schizophrenia Code(s): F20.9 - SCHIZOPHRENIA, UNSPECIFIED Status: Chronic Time Spent in discharge related activities (mins): 36 Plan Prescriptions: Pregabalin 150 mg PO TID #90 capsule Home Medications: Medication Instructions Recorded Confirmed Type Ibuprofen 800 mg PO Q6HR PRN 09/05/16 06/09/20 History carBAMazepine [Tegretol] 200 mg PO BID 09/05/16 06/09/20 History Furosemide [Lasix] 40 mg PO DAILY 04/02/20 06/09/20 History PARoxetine HCl 60 mg PO DAILY 04/02/20 06/09/20 History clonazePAM [Clonazepam] 2 mg PO HS PRN 04/02/20 06/09/20 History traMADol HCl [Tramadol HCl] 50 mg PO Q6HR PRN 04/02/20 06/09/20 History Calcium Carbonate [Tums Smoothies 2 tablet PO Q4HR PRN 04/23/20 06/09/20 History Extra Strength] Cholecalciferol (Vitamin D3) 1,000 unit PO DAILY 04/23/20 06/09/20 History [Vitamin D3] Fluticasone/Umeclidin/Vilanter 1 inh PO DAILY 04/23/20 06/09/20 History [Trelegy Ellipta 100-62.5-25] Naproxen 500 mg PO Q12HR 04/23/20 06/09/20 History Neomycin/Polymyxin/HC [Cortisporin 3 drop L EAR TID 04/23/20 06/09/20 History Otic Solution] Omeprazole 40 mg PO DAILY 04/23/20 06/09/20 History Acetaminophen W/ Codeine 1 tab PO TID PRN 06/09/20 06/09/20 History [Acetaminophen/Codeine #3] Albuterol Sulfate [Proventil Hfa] 90 mcg INH Q6HR 06/09/20 06/09/20 History Baclofen 20 mg PO TID 06/09/20 06/09/20 History Folic Acid 5 tab PO DAILY 06/09/20 06/09/20 History Melatonin 5 mg PO HS 06/09/20 06/09/20 History OLANZapine [Olanzapine] 15 mg PO HS 06/09/20 06/09/20 History Potassium Chloride 1 tab PO BID 06/09/20 06/09/20 History Pregabalin 150 mg PO TID #90 capsule 06/10/20 Rx Allergies: Penicillins Allergy (Verified 04/23/20 09:07) Activity:: Activity as Tolerated Nourishment:: Heart Healthy Diet Referrals: [facility] PHYSICIAN,OUT OF [Primary Care Provider] - Disposition: HOME Quality CORE MEASURES:: N/A
[2020-06-10] MEDS: Ketorolac Tromethamine 30 MG/ML VIAL IVP SCH (12:49)
[2020-06-10 13:40] LABS: Acetaminophen Less than 6.0 mcg/mL (10.0-30.0); Alcohol Less than 10 mg/dL (Less than 10); Salicylate Less than 8.0 mg/dL (15.0-30.0)
[2020-06-10] MEDS ORDERED: FLU VACC QS2020-21(6MOS UP)/PF 60 MCG/0.5 ML SYRINGE IM ONE (14:15)
[2020-06-10 16:38] VITALS: BP 140/74; TEMP 98.2
--- NOTE | 2020-06-13 06:51 | PQF ---
CLINICAL DOCUMENTATION CLARIFICATION FORM: Dear : Mann Bangura MD Date / Time: 06/13/2020 Please exercise your independent, professional judgment in responding to the clarification form. Clinical indicators are provided on the bottom of this form for your review Please check appropriate box(es): [ ] Intentional overdose [ ] Accidental overdose [ ] No overdose [ ] Other diagnosis (Please specify if any) [ ] Unable to determine Physician Signature: Date/Time: For continuity of documentation, please document condition throughout progress notes and discharge summary. Thank You. To be completed by CDI/Coding staff for physician review: Present Clinical Indicators - Signs / Symptoms / Labs Results and Location in Medical Record [x] Patient here for evaluation secondary to overdose ED provider report on 06/09 [x] Possible OD ED provider report on 06/09 [x] Urine drug screen notes opiates however she responded to flumazenil H&P on 06/09 [x] Intentional drug overdose H&P on 06/09 [x] She denied any suicidal ideation or any intention to overdose Discharge summary on 06/10 [x] There was a concern for polypharmacy. Discharge summary on 06/10 Present Risk Factors Results and Location in Medical Record [x] AMS H&P on 06/09 [x] Encephalopathy H&P on 06/09 Present Treatments Results and Location in Medical Record [x] Came in altered to the outside facility and was given narcan and flumazenil ED provider report on 06/09 [x] Discussed with poison control H&P on 06/09 [ ] [ ] CDS/Flight Engineer Inspector Signature: AAS Phone #: Date/Time: 06/13/2020 This is a permanent part of the Medical Record [facility]
== END 2020-06-10 17:38 | disposition home or self-care (01) | DRG 917 ==
LOC: ERS 23:28 → ERHOLD 06-09 00:18 → OBSVTOIN 06-09 00:18 → 2NO 06-09 13:21
PROVIDERS: ADMIT Student in an Organized Health Care Education/Training Program; ATTEND Internal Medicine
DX: T42.8X1A Poisoning by antiparkinsonism drugs and other central muscle-tone depressants, accidental (unintentional), initial encounter (principal); G93.41 Metabolic encephalopathy; J44.1 Chronic obstructive pulmonary disease with (acute) exacerbation; T39.1X1A Poisoning by 4-Aminophenol derivatives, accidental (unintentional), initial encounter; M54.9 Dorsalgia, unspecified; I10 Essential (primary) hypertension; F31.9 Bipolar disorder, unspecified; F20.9 Schizophrenia, unspecified; F41.9 Anxiety disorder, unspecified; G89.4 Chronic pain syndrome; Z20.822 Contact with and (suspected) exposure to COVID-19; I25.2 Old myocardial infarction; Z88.0 Allergy status to penicillin; Z79.899 Other long term (current) drug therapy; Z79.891 Long term (current) use of opiate analgesic; Z79.51 Long term (current) use of inhaled steroids
CPT/HCPCS: 36415; 80048; 80076; 80143; 80307; 85025; 87635; 94640; 96372; 96374; G0378; J1650; J1885; J2920; J7620; U0003; U0005

== ENCOUNTER 2023-03-26 22:03 | Observation (INO) | payer MEDICARE ==
[2023-03-26 22:17] LABS: Actual Bicarbonate (HCO3v) 26.4 mEq/L (22-28); Analyzer IN Cardio ER; Base Excess 1.4 mEq/L (-2.0 to +3.0); Calcium, Ionized (venous) 1.09 mmol/L (1.16-1.32); Chloride (VBG) 101 mmol/L (98-106); Hematocrit-VBG 38 % (36.0-47.0); Potassium (VBG) 3.81 mmol/L (3.70-5.30); Sodium 138 mmol/L (133-146); pH (venous) 7.402 (7.32-7.43)
[2023-03-26 22:31] LABS: #Basophils 0.1 thou/uL (0.0-0.2); #Eosinphils 0.6 thou/uL (0.0-0.7); #Monocytes 0.9 thou/uL (0.11-0.59); #Neutrophils 8.4 thou/uL (1.40-6.50); %Basophils 0.8 % (0.0-1.0); %Lymphocytes 10.7 % (21.0-51.0); %Monocytes 7.7 % (0.0-10.0); %Neutrophils 75.4 % (42.0-75.0); Hematocrit 38.7 % (36.0-47.0); Hemoglobin 12.3 g/dL (12.0-16.0); Mean Corpuscular HGB CONC 31.8 g/dL (32.0-36.0); Mean Corpuscular Hemoglobin 29.6 pg (27.0-31.0); Mean Platelet Volume 8.7 fL (7.4-10.4); Platelet Count 280 10x3/uL (130-400); RBC Distribution Width 14.3 % (11.5-14.5); Red Blood Cell (RBC) Count 4.16 mill/uL (4.20-5.40); White Blood Cell (WBC) Count 11.1 10x3/uL (4.8-10.8)
[2023-03-26 22:41] LABS: INR-International Normal Ratio 0.9; Prothrombin Time 12.7 sec (12.0-14.7)
[2023-03-26 22:42] LABS: PTT 28.4 sec (22.9-36.1)
[2023-03-26 22:51] LABS: Amphetamine Not Detected (NotDetected); Barbiturates Screen Not Detected (NotDetected); Benzodiazepine Screen Not Detected (NotDetected); Cocaine Metabolite Screen Not Detected (NotDetected); Methadone Not Detected (NotDetected); Methamphetamine Not Detected (NotDetected); Opiate Screen Not Detected (NotDetected); Oxycodone Screen Not Detected (NotDetected); Phencyclidine (PCP) Not Detected (NotDetected); THC/Cannabinoid Screen Not Detected (NotDetected); Tricyclic Screen Not Detected (NotDetected)
[2023-03-26 22:58] LABS: Bacteria/HPF None Seen HPF (None Seen); Bilirubin Negative (Negative); Blood, Urine Negative (Negative); CAUTI Indications for Culture Alt mental st,lethar; Clarity Clear (Clear); Glucose, Urine (Dipstick) Normal (Negative); Ketone, Urine Negative (Negative); Leukocyte Negative Leu/uL (Negative); Nitrite 2+ (Negative); Protein, Urine (Dipstick) Negative (Neg-Trace); RBC/HPF 0-3 HPF (0-3); Specific Gravity, Urine 1.018 (1.002-1.036); Squamous Epithelial None Seen HPF (0-3); Urobilinogen Normal mg/dL (Less than 2); WBC/HPF 0-3 HPF (0-3); pH, Urine 6.5 (5.0-9.0)
[2023-03-26 22:59] LABS: ALT (SGPT) 10 U/L (8-55); AST (SGOT) 15 U/L (5-34); Albumin 3.9 g/dL (3.5-5.0); Alkaline Phosphatase 83 U/L (40-110); Anion Gap 18 mmol/L (10-20); BUN (Urea Nitrogen) 16 mg/dL (9.8-20.1); Bilirubin, Total 0.2 mg/dL (0.2-1.2); CK (CPK) 137 U/L (29-168); Calc. Creatinine Clearance 0 mL/min (70-130); Calcium 8.9 mg/dL (7.8-10.44); Carbon Dioxide 22 mmol/L (22-29); Chloride 102 mmol/L (98-107); Estimated GFR 94; Globulin 2.4 g/dL (2.4-3.5); Glucose 98 mg/dL (70-105); Potassium 3.8 mmol/L (3.5-5.1); Protein, Total 6.3 g/dL (6.0-8.3); Sodium 138 mmol/L (136-145)
[2023-03-26 23:00] LABS: Urine Culture Reflex No No
[2023-03-26] MEDS ORDERED: Ondansetron ODT 4 MG TAB PO PRN (23:15)
[2023-03-26] MEDS ORDERED: hydrALAZINE 20 MG/ML VIAL SLOW IVP PRN (23:15)
[2023-03-26] MEDS ORDERED: Lorazepam 2 MG/ML VIAL SLOW IVP PRN (23:15)
[2023-03-26] MEDS ORDERED: Ondansetron PF 4 MG/2 ML Vial IVP PRN (23:15)
[2023-03-26] MEDS ORDERED: Sodium Chloride 0.9% 1,000 ML IV SCH (23:45)
[2023-03-27] MEDS ORDERED: Ipratropium/Albuterol 3 ML NEB NEB SCH (00:01)
[2023-03-27 00:32] LABS: Troponin I Less than 0.010 ng/mL (< 0.028)
[2023-03-27 00:43] LABS: Alcohol Less than 10.0 mg/dL (Less than 10)
[2023-03-27 00:45] LABS: Magnesium 3.5 mg/dL (1.6-2.6); Salicylate Less than 8.0 mg/dL (15.0-30.0)
[2023-03-27 00:46] LABS: Acetaminophen Less than 10 mcg/mL (10.0-30.0); Lipase 54 U/L (8-78)
[2023-03-27 02:02] VITALS: BMI 21.9
[2023-03-27 02:58] LABS: Troponin I Less than 0.010 ng/mL (< 0.028)
[2023-03-27 05:09] LABS: #Basophils 0.1 thou/uL (0.0-0.2); #Eosinphils 0.5 thou/uL (0.0-0.7); #Monocytes 0.7 thou/uL (0.11-0.59); #Neutrophils 5.2 thou/uL (1.40-6.50); %Basophils 0.8 % (0.0-1.0); %Eosinophils 6.7 % (0.0-10.0); %Lymphocytes 13.2 % (21.0-51.0); Hematocrit 35.9 % (36.0-47.0); Hemoglobin 11.4 g/dL (12.0-16.0); Mean Corpuscular HGB CONC 31.8 g/dL (32.0-36.0); Mean Corpuscular Hemoglobin 29.8 pg (27.0-31.0); Platelet Count 266 10x3/uL (130-400); RBC Distribution Width 14.5 % (11.5-14.5); Red Blood Cell (RBC) Count 3.82 mill/uL (4.20-5.40); White Blood Cell (WBC) Count 7.4 10x3/uL (4.8-10.8)
[2023-03-27] MEDS: Acetaminophen 325 MG TAB PO PRN ×4 (06:17→22:19)
[2023-03-27 06:59] LABS: Troponin I Less than 0.010 ng/mL (< 0.028)
[2023-03-27 07:01] LABS: Anion Gap 14 mmol/L (10-20); BUN (Urea Nitrogen) 12 mg/dL (9.8-20.1); Calc. Creatinine Clearance 76 mL/min (70-130); Calcium 8.6 mg/dL (7.8-10.44); Carbon Dioxide 25 mmol/L (22-29); Cardiac Risk 3.2 (Less than 4.5); Chloride 106 mmol/L (98-107); Cholesterol 232 mg/dl (< 200 Desired); Estimated GFR 102; Glucose 98 mg/dL (70-105); HDL Cholesterol 72 mg/dL (>60 Neg Risk); LDL Cholesterol, Calculated 145 mg/dL; Magnesium 2.4 mg/dL (1.6-2.6); Potassium 3.7 mmol/L (3.5-5.1); Sodium 141 mmol/L (136-145); Triglycerides 77 mg/dL (Less than 150)
[2023-03-27] MEDS: Ipratropium/Albuterol 3 ML NEB NEB SCH ×4 (07:25→23:29)
[2023-03-27] MEDS: Aspirin 81 mg Enteric Coated Tablet PO SCH (09:09)
[2023-03-27] MEDS ORDERED: Magnevist 469MG/ML 20 ML VIAL ONE (10:21)
[2023-03-28] MEDS: Acetaminophen 325 MG TAB PO PRN ×2 (04:04→08:52)
[2023-03-28 04:21] LABS: #Basophils 0.1 thou/uL (0.0-0.2); #Eosinphils 0.3 thou/uL (0.0-0.7); #Monocytes 0.5 thou/uL (0.11-0.59); #Neutrophils 5.6 thou/uL (1.40-6.50); %Basophils 0.8 % (0.0-1.0); %Eosinophils 4.2 % (0.0-10.0); %Lymphocytes 10.2 % (21.0-51.0); %Monocytes 6.5 % (0.0-10.0); Hemoglobin 12.8 g/dL (12.0-16.0); Mean Corpuscular Hemoglobin 29.7 pg (27.0-31.0); Mean Corpuscular Volume 92.8 fl (78.0-98.0); Mean Platelet Volume 8.9 fL (7.4-10.4); Platelet Count 299 10x3/uL (130-400); RBC Distribution Width 14.1 % (11.5-14.5); Red Blood Cell (RBC) Count 4.31 mill/uL (4.20-5.40); White Blood Cell (WBC) Count 7.2 10x3/uL (4.8-10.8)
[2023-03-28 04:45] LABS: Anion Gap 15 mmol/L (10-20); BUN (Urea Nitrogen) 14 mg/dL (9.8-20.1); Calc. Creatinine Clearance 86 mL/min (70-130); Carbon Dioxide 23 mmol/L (22-29); Chloride 102 mmol/L (98-107); Estimated GFR 105; Glucose 87 mg/dL (70-105); Potassium 3.4 mmol/L (3.5-5.1); Sodium 137 mmol/L (136-145)
[2023-03-28] MEDS: Ipratropium/Albuterol 3 ML NEB NEB SCH ×2 (06:57→13:31)
[2023-03-28] MEDS: Aspirin 81 mg Enteric Coated Tablet PO SCH (08:52)
[2023-03-28] MEDS ORDERED: Acetaminophen 325 MG TAB PO PRN (09:20)
[2023-03-28] MEDS ORDERED: clonazePAM 1 MG TAB PO PRN (09:21)
[2023-03-28] MEDS ORDERED: Acetaminophen 325 MG TAB PO SCH (09:30)
[2023-03-28 12:51] VITALS: BP 166/85; TEMP 98.2
[2023-03-28] MEDS ORDERED: Mometasone 100 MCG HFA INHALER (RT USE) INH SCH (18:30)
[2023-03-28] MEDS ORDERED: OLANZapine 5 MG TAB PO SCH (21:00)
[2023-03-28] MEDS ORDERED: carBAMazepine 200 MG TAB PO SCH (21:00)
[2023-03-28] MEDS ORDERED: Melatonin 3 MG TAB PO SCH (21:00)
[2023-03-29] MEDS ORDERED: PARoxetine 20 MG TAB PO SCH (09:00)
== END 2023-03-28 15:30 | disposition home or self-care (01) ==
LOC: ERS 22:03 → 2SE 23:19
PROVIDERS: ADMIT Internal Medicine; ATTEND Internal Medicine Critical Care Medicine
DX: R41.82 Altered mental status, unspecified (principal); G93.41 Metabolic encephalopathy; R33.9 Retention of urine, unspecified; G89.4 Chronic pain syndrome; F32.A Depression, unspecified; F31.9 Bipolar disorder, unspecified; F20.9 Schizophrenia, unspecified; I25.10 Atherosclerotic heart disease of native coronary artery without angina pectoris; J44.9 Chronic obstructive pulmonary disease, unspecified; I16.0 Hypertensive urgency; I10 Essential (primary) hypertension; Z88.0 Allergy status to penicillin; Z79.899 Other long term (current) drug therapy
CPT/HCPCS: 51701; 51798; 70450; 70553; 71045; 80048 ×2; 80061; 80306; 80307; 81001; 82550; 82805; 82962; 83605; 83690; 83735 ×2; 83880; 84146; 84484 ×3; 85025 ×2; 85610; 85730; 93005; 94640 ×3; 95711; 95819; 96360; 99285; G0378 ×3; 36415; 36416; 80053; 84443; A9579; J7050; J7620

== ENCOUNTER 2025-01-29 12:48 | Inpatient (IN) | payer MEDICARE ==
[~2025-01-29 12:48] MED LIST: Iopamidol-370 76% 500 ML MDV (1 ML CHARGE) ONE
[2025-01-29 13:23] LABS: Hematocrit 23.9 % (36.0-47.0); Hemoglobin 7.0 g/dL (12.0-16.0); Mean Corpuscular Hemoglobin 21.9 pg (27.0-31.0); Mean Corpuscular Volume 74.7 fL (78.0-98.0); Platelet Count 452 10x3/uL (130-400); Red Blood Cell (RBC) Count 3.20 mill/uL (4.20-5.40); White Blood Cell (WBC) Count 48.79 10x3/uL (4.8-10.8)
[2025-01-29 13:35] LABS: ALT (SGPT) 10 U/L (Less than 34); AST (SGOT) 13 U/L (11-34); Albumin 1.9 g/dL (3.1-4.5); Alkaline Phosphatase 337 U/L (40-110); Anion Gap 15 mmol/L (10-20); BUN (Urea Nitrogen) 8 mg/dL (9.8-20.1); Bilirubin, Total 0.1 mg/dL (0.3-1.2); Calc. Creatinine Clearance 0 mL/min (70-130); Calcium 7.8 mg/dL (7.8-10.44); Carbon Dioxide 23 mmol/L (22-29); Chloride 102 mmol/L (98-107); Globulin 3.7 g/dL (2.4-3.5); Glucose 104 mg/dL (70-105); Potassium 3.0 mmol/L (3.5-5.1); Sodium 137 mmol/L (136-145)
[2025-01-29 13:53] LABS: Anisocytosis SLIGHT = 6-15 cells HPF (0-5); Dohle Bodies SLIGHT; Macrocytosis SLIGHT = 6-15 cells HPF (0-5); Microcytosis SLIGHT = 6-15 cells HPF (0-5); Platelet Adequacy Comment Platelets Increased; Poikilocytosis SLIGHT = 6-15 cells HPF (0-5); Polychromasia SLIGHT = 2-3 cells HPF (0-2); Schistocytes SLIGHT = 2-5 cells HPF (0-1); Smudge Cells 1.0 %
[2025-01-29 13:54] LABS: Reflex for Review?? YES
[2025-01-29 14:43] LABS: Acetaminophen 11 mcg/mL (Less than 10); Salicylate 9.4 mg/dL (Less than 8.0)
[2025-01-29] MEDS ORDERED: Potassium Chloride 20 MEQ (100 mL) BAG ONE ×2 (15:43→17:01)
[2025-01-29] MEDS ORDERED: Cefepime 2 GM VIAL ONE (17:01)
[2025-01-29] MEDS ORDERED: Vancomycin 1 GM/200 ML (FROZEN) BAG ONE (17:01)
[2025-01-29] MEDS ORDERED: Electrolyte Replacement Protocol 1 EACH FS SCH (18:30)
[2025-01-29] MEDS: Famotidine/PF 20 mg/2ml Vial SLOW IVP SCH (22:44)
[2025-01-30 04:18] LABS: #Basophils 0.05 10x3/uL (0.0-0.2); #Eosinophils Less than 0.03 10x3/uL (0.0-0.7); #Monocytes 0.93 10x3/uL (0.11-0.59); #Neutrophils 30.02 10x3/uL (1.40-6.50); %Basophils 0.2 % (0.0-1.0); %Eosinophils 0.0 % (0.0-10.0); %Lymphocytes 1.4 % (21.0-51.0); %Monocytes 2.9 % (0.0-10.0); %Neutrophils 92.4 % (42.0-75.0); Hematocrit 20.0 % (36.0-47.0); Hemoglobin 6.0 g/dL (12.0-16.0); Mean Corpuscular Hemoglobin 22.0 pg (27.0-31.0); Mean Corpuscular Volume 73.3 fL (78.0-98.0); Platelet Count 419 10x3/uL (130-400); Red Blood Cell (RBC) Count 2.73 mill/uL (4.20-5.40); White Blood Cell (WBC) Count 32.49 10x3/uL (4.8-10.8)
[2025-01-30 04:30] LABS: INR-International Normal Ratio 5.3; Prothrombin Time 48.6 sec (12.0-14.7)
[2025-01-30 04:33] LABS: Vancomycin, Random 4.6 ug/mL (See Comment)
[2025-01-30 04:42] LABS: Iron 10 ug/dL (50-170); Iron Binding Capacity, Total 141 mcg/dL (265-497)
[2025-01-30 04:44] LABS: ALT (SGPT) 10 U/L (Less than 34); AST (SGOT) 15 U/L (11-34); Albumin 1.8 g/dL (3.1-4.5); Alkaline Phosphatase 338 U/L (40-110); Anion Gap 14 mmol/L (10-20); BUN (Urea Nitrogen) 10 mg/dL (9.8-20.1); Bilirubin, Total 0.2 mg/dL (0.3-1.2); Calc. Creatinine Clearance 0 mL/min (70-130); Calcium 8.0 mg/dL (7.8-10.44); Carbon Dioxide 23 mmol/L (22-29); Chloride 106 mmol/L (98-107); Globulin 3.4 g/dL (2.4-3.5); Glucose 105 mg/dL (70-105); Iron 8 ug/dL (50-170); Iron Binding Capacity, Total 144 mcg/dL (265-497); Potassium 2.7 mmol/L (3.5-5.1); Sodium 140 mmol/L (136-145)
[2025-01-30] MEDS: Vancomycin 1 GM in Premix 1 BAG IVPB SCH (06:38)
[2025-01-30] MEDS: Potassium Chloride 20 MEQ in Premix 1 BAG IVPB SCH ×2 (06:41→21:42)
[2025-01-30 07:03] LABS: Cocaine Metabolite Screen Negative (Negative); THC/Cannabinoid Screen Negative (Negative); Tricyclic Screen PRELIM POSITIVE (Negative)
[2025-01-30 07:24] LABS: Legionella Urinary Ag Negative (Negative); Strep pneumo Urine Ag NEGATIVE (NEGATIVE)
[2025-01-30 09:29] LABS: Platelet Count 361 10x3/uL (130-400)
[2025-01-30] MEDS ORDERED: Iopamidol-370 76% 500 ML MDV (1 ML CHARGE) ONE (09:34)
[2025-01-30 09:43] LABS: Fibrinogen 802 mg/dL (253-463); INR-International Normal Ratio 5.1; Prothrombin Time 47.3 sec (12.0-14.7)
[2025-01-30 09:47] LABS: PTT 122.5 sec (22.9-36.1)
[2025-01-30 09:53] LABS: D-Dimer Test 5.00 mcg/mL (0.27-0.43)
[2025-01-30 18:40] LABS: CK (CPK) 70.0 U/L (29-168); Uric Acid 2.1 mg/dL (2.5-6.2)
[2025-01-30 19:09] LABS: HIV (1/2) Antibody/Antigen NONREACTIVE (NonReactive); HIV 1/2 INDEX 0.11 S/CO (<1.00)
[2025-01-30 19:21] LABS: Vitamin B12 Greater than 2000 pg/mL (211-911)
[2025-01-30 20:26] LABS: Potassium 3.0 mmol/L (3.5-5.1)
[2025-01-30 21:24] LABS: #Basophils 0.04 10x3/uL (0.0-0.2); #Eosinophils 0.06 10x3/uL (0.0-0.7); #Monocytes 0.68 10x3/uL (0.11-0.59); #Neutrophils 20.46 10x3/uL (1.40-6.50); %Basophils 0.2 % (0.0-1.0); %Eosinophils 0.3 % (0.0-10.0); %Lymphocytes 2.9 % (21.0-51.0); %Monocytes 3.0 % (0.0-10.0); %Neutrophils 91.4 % (42.0-75.0); Hematocrit 22.9 % (36.0-47.0); Hemoglobin 6.7 g/dL (12.0-16.0); Mean Corpuscular Hemoglobin 21.8 pg (27.0-31.0); Mean Corpuscular Volume 74.6 fL (78.0-98.0); Platelet Count 360 10x3/uL (130-400); Red Blood Cell (RBC) Count 3.07 mill/uL (4.20-5.40); White Blood Cell (WBC) Count 22.40 10x3/uL (4.8-10.8)
[2025-01-31 05:33] LABS: Hematocrit 30.6 % (36.0-47.0); Hemoglobin 9.3 g/dL (12.0-16.0); Mean Corpuscular Hemoglobin 23.5 pg (27.0-31.0); Mean Corpuscular Volume 77.5 fL (78.0-98.0); Platelet Count 391 10x3/uL (130-400); Red Blood Cell (RBC) Count 3.95 mill/uL (4.20-5.40); White Blood Cell (WBC) Count 25.37 10x3/uL (4.8-10.8)
[2025-01-31 05:44] LABS: INR-International Normal Ratio 1.3; Prothrombin Time 16.0 sec (12.0-14.7)
[2025-01-31 05:45] LABS: PTT 47.3 sec (22.9-36.1)
[2025-01-31 05:52] LABS: D-Dimer Test 9.03 mcg/mL (0.27-0.43)
[2025-01-31 06:08] LABS: Anisocytosis SLIGHT = 6-15 cells HPF (0-5); Microcytosis SLIGHT = 6-15 cells HPF (0-5); Platelet Adequacy Comment Platelets Normal; Polychromasia SLIGHT = 2-3 cells HPF (0-2)
[2025-01-31 06:09] LABS: ALT (SGPT) 12 U/L (Less than 34); AST (SGOT) 21 U/L (11-34); Albumin 1.9 g/dL (3.1-4.5); Alkaline Phosphatase 266 U/L (40-110); Anion Gap 13 mmol/L (10-20); BUN (Urea Nitrogen) 9 mg/dL (9.8-20.1); Bilirubin, Total 0.4 mg/dL (0.3-1.2); Calc. Creatinine Clearance 92 mL/min (70-130); Calcium 8.6 mg/dL (7.8-10.44); Carbon Dioxide 24 mmol/L (22-29); Chloride 107 mmol/L (98-107); Globulin 3.8 g/dL (2.4-3.5); Glucose 108 mg/dL (70-105); Magnesium 2.0 mg/dL (1.6-2.6); Potassium 3.6 mmol/L (3.5-5.1); Sodium 140 mmol/L (136-145); Vancomycin, Random 15.1 ug/mL (See Comment)
[2025-01-31 06:24] LABS: Free T4 (Free Thyroxine) 0.74 ng/dL (0.70-1.48); Thyroid Stimulating Hormone 0.7921 uIU/mL (0.35-4.94)
[2025-01-31 07:23] LABS: Influenza A by NAA Not Detected (NotDetected); Influenza B by NAA Not Detected (NotDetected); SARS-CoV-2 NAA Rapid Test Not Detected (NotDetected)
[2025-01-31] MEDS: Magnesium 2 GM/50 ML(in water) 2 GM in Premix 1 BAG IVPB SCH (07:27)
[2025-01-31 10:03] LABS: Hep A IgM AB NONREACTIVE (NonReactive); Hep A IgM S/CO 0.19 S/CO (0-0.79); Hep B Core IgM Index 0.11 S/CO (0-0.79); Hep B Surf Ag NONREACTIVE S/CO (NonReactive); Hep C IgG Ab NONREACTIVE S/CO (NonReactive); Hep C Index 0.06 S/CO (0-0.79)
[2025-01-31 14:11] LABS: Actual Bicarbonate (HCO3a) 22.8 mEq/L (22-28); Base Excess (BEa) -1.8 mEq/L (-2.0 to +3.0); CO2 Tension 38.0 mmHg (35.0-45.0); Calcium, Ionized (arterial) 1.13 mmol/L (1.12-1.30); Hematocrit-ABG 32 % (36.0-47.0); Hemoglobin (Hb) 10.9 g/dL (12.0-16.0); O2 Tension (PaO2), arterial 67.0 mmHg (80.0-100.0); Potassium - ABG Lab 3.14 mmol/L (3.70-5.30); pH, Arterial 7.396 (7.35-7.45)
[2025-01-31 14:18] LABS: ALV-art Gradient 113.660 mmHg (0-20); Puncture Site Right Radial artery
[2025-01-31] MEDS: Furosemide 40 MG (4 mL) VIAL SLOW IVP SCH (14:33)
[2025-02-01 06:10] LABS: Vancomycin, Random 14.5 ug/mL (See Comment)
[2025-02-01] MEDS: FLU (Fluarix Triv) 25-26 (6MOS UP)/PF 45 MCG/0.5 ML Syringe IM ONE (08:38)
[2025-02-01 09:38] LABS: Ref Lab Test Ordered ADAMTS13 Activity; Reference Lab Name LABCORP
[2025-02-01 11:45] LABS: EliA APS New Method **** NEW METHOD ****; dsDNA IgG Antibody 0.7 IU/mL (<10 Negative)
[2025-02-01 12:08] LABS: ANA Symphony (Qualitative) Negative (Negative); ANA Symphony (Quantitative) Less than 0.1 Ratio (< 0.7 Negative)
[2025-02-01 13:04] LABS: Carbamazepine-Tegretol 2.6 ug/mL (4.0-12.0)
[2025-02-01 14:28] LABS: #Basophils 0.05 10x3/uL (0.0-0.2); #Eosinophils Less than 0.03 10x3/uL (0.0-0.7); #Monocytes 1.06 10x3/uL (0.11-0.59); #Neutrophils 16.68 10x3/uL (1.40-6.50); %Basophils 0.3 % (0.0-1.0); %Eosinophils 0.1 % (0.0-10.0); %Lymphocytes 4.9 % (21.0-51.0); %Monocytes 5.5 % (0.0-10.0); %Neutrophils 86.4 % (42.0-75.0); Hematocrit 32.4 % (36.0-47.0); Hemoglobin 9.9 g/dL (12.0-16.0); Mean Corpuscular Hemoglobin 23.1 pg (27.0-31.0); Mean Corpuscular Volume 75.5 fL (78.0-98.0); Platelet Count 448 10x3/uL (130-400); Red Blood Cell (RBC) Count 4.29 mill/uL (4.20-5.40); White Blood Cell (WBC) Count 19.29 10x3/uL (4.8-10.8)
[2025-02-01 14:48] LABS: ALT (SGPT) 13 U/L (Less than 34); AST (SGOT) 23 U/L (11-34); Albumin 2.0 g/dL (3.1-4.5); Alkaline Phosphatase 225 U/L (40-110); Anion Gap 20 mmol/L (10-20); BUN (Urea Nitrogen) 14 mg/dL (9.8-20.1); Bilirubin, Total 0.5 mg/dL (0.3-1.2); Calc. Creatinine Clearance 89 mL/min (70-130); Calcium 8.3 mg/dL (7.8-10.44); Carbon Dioxide 25 mmol/L (22-29); Chloride 103 mmol/L (98-107); Globulin 3.6 g/dL (2.4-3.5); Glucose 105 mg/dL (70-105); Potassium 3.0 mmol/L (3.5-5.1); Sodium 145 mmol/L (136-145)
[2025-02-01] MEDS: Potassium Chloride 20 MEQ in Premix 1 BAG IVPB SCH (17:41)
[2025-02-02 05:05] LABS: #Basophils 0.03 10x3/uL (0.0-0.2); #Eosinophils Less than 0.03 10x3/uL (0.0-0.7); #Monocytes 0.52 10x3/uL (0.11-0.59); #Neutrophils 12.21 10x3/uL (1.40-6.50); %Basophils 0.2 % (0.0-1.0); %Eosinophils 0.0 % (0.0-10.0); %Lymphocytes 4.1 % (21.0-51.0); %Monocytes 3.8 % (0.0-10.0); %Neutrophils 89.4 % (42.0-75.0); Hematocrit 35.2 % (36.0-47.0); Hemoglobin 10.6 g/dL (12.0-16.0); Mean Corpuscular Hemoglobin 23.0 pg (27.0-31.0); Mean Corpuscular Volume 76.5 fL (78.0-98.0); Platelet Count 443 10x3/uL (130-400); Red Blood Cell (RBC) Count 4.60 mill/uL (4.20-5.40); White Blood Cell (WBC) Count 13.66 10x3/uL (4.8-10.8)
[2025-02-02 05:33] LABS: ALT (SGPT) 14 U/L (Less than 34); AST (SGOT) 32 U/L (11-34); Albumin 2.4 g/dL (3.1-4.5); Alkaline Phosphatase 248 U/L (40-110); Anion Gap 18 mmol/L (10-20); BUN (Urea Nitrogen) 13 mg/dL (9.8-20.1); Bilirubin, Total 0.6 mg/dL (0.3-1.2); Calc. Creatinine Clearance 87 mL/min (70-130); Calcium 8.7 mg/dL (7.8-10.44); Carbon Dioxide 27 mmol/L (22-29); Chloride 104 mmol/L (98-107); Globulin 4.1 g/dL (2.4-3.5); Glucose 117 mg/dL (70-105); Potassium 3.4 mmol/L (3.5-5.1); Sodium 146 mmol/L (136-145)
[2025-02-02] MEDS: Potassium Chloride 20 MEQ in Premix 1 BAG IVPB SCH (06:49)
[2025-02-02 14:26] LABS: Potassium 3.5 mmol/L (3.5-5.1)
[2025-02-02 15:15] LABS: Albumin-Ur 13.5 % (.); Alpha 1 - Ur 5.8 % (.); Alpha 2 - Ur 27.7 % (.); Beta-Ur 36.9 % (.); Gamma-Ur 16.1 % (.); M-Spike,% Not Observed % (Not Observed); Protein, Urine 81.1 mg/dL (Not Estab.)
[2025-02-02 15:15] LABS: A/G Ratio 0.7 (0.7-1.7); Albumin 2.1 g/dL (2.9-4.4); Alpha 1 0.6 g/dL (0.0-0.4); Alpha 2 1.2 g/dL (0.4-1.0); Beta 0.7 g/dL (0.7-1.3); Gamma 0.4 g/dL (0.4-1.8); Globulin, Total 2.9 g/dL (2.2-3.9); M-Spike Not Observed g/dL (Not Observed); Protein Electrophoresis Intrp Note: (.)
[2025-02-03 03:30] LABS: #Basophils 0.04 10x3/uL (0.0-0.2); #Eosinophils Less than 0.03 10x3/uL (0.0-0.7); #Monocytes 0.59 10x3/uL (0.11-0.59); #Neutrophils 13.96 10x3/uL (1.40-6.50); %Basophils 0.3 % (0.0-1.0); %Eosinophils 0.1 % (0.0-10.0); %Lymphocytes 3.2 % (21.0-51.0); %Monocytes 3.8 % (0.0-10.0); %Neutrophils 90.1 % (42.0-75.0); Hematocrit 29.9 % (36.0-47.0); Hemoglobin 9.1 g/dL (12.0-16.0); Mean Corpuscular Hemoglobin 23.4 pg (27.0-31.0); Mean Corpuscular Volume 76.9 fL (78.0-98.0); Platelet Count 378 10x3/uL (130-400); Red Blood Cell (RBC) Count 3.89 mill/uL (4.20-5.40); White Blood Cell (WBC) Count 15.49 10x3/uL (4.8-10.8)
[2025-02-03 03:44] LABS: Vancomycin, Random 11.2 ug/mL (See Comment)
[2025-02-03 03:50] LABS: ALT (SGPT) 10 U/L (Less than 34); AST (SGOT) 18 U/L (11-34); Albumin 2.2 g/dL (3.1-4.5); Alkaline Phosphatase 198 U/L (40-110); Anion Gap 18 mmol/L (10-20); BUN (Urea Nitrogen) 14 mg/dL (9.8-20.1); Bilirubin, Total 0.4 mg/dL (0.3-1.2); Calc. Creatinine Clearance 98 mL/min (70-130); Calcium 8.3 mg/dL (7.8-10.44); Carbon Dioxide 27 mmol/L (22-29); Chloride 105 mmol/L (98-107); Globulin 3.3 g/dL (2.4-3.5); Glucose 124 mg/dL (70-105); Potassium 3.1 mmol/L (3.5-5.1); Sodium 147 mmol/L (136-145)
[2025-02-03] MEDS: Potassium Chloride 20 MEQ in Premix 1 BAG IVPB SCH (06:35)
[2025-02-03] MEDS: cefTRIAXone\\ROCEPHIN 2 GM in Sodium Chloride 0.9% 100 ML IVPB SCH (14:27)
[2025-02-03] MEDS: Carvedilol 3.125 MG TAB PO SCH (17:56)
[2025-02-03] MEDS: Sacubitril 24MG/Valsartan 26 MG TAB PO SCH (21:43)
[2025-02-03] MEDS: QUEtiapine 25 MG TAB PO SCH (21:43)
[2025-02-04 07:31] LABS: #Basophils 0.04 10x3/uL (0.0-0.2); #Eosinophils Less than 0.03 10x3/uL (0.0-0.7); #Monocytes 0.70 10x3/uL (0.11-0.59); #Neutrophils 17.63 10x3/uL (1.40-6.50); %Basophils 0.2 % (0.0-1.0); %Eosinophils 0.0 % (0.0-10.0); %Lymphocytes 2.9 % (21.0-51.0); %Monocytes 3.6 % (0.0-10.0); %Neutrophils 91.4 % (42.0-75.0); Hematocrit 34.4 % (36.0-47.0); Hemoglobin 10.4 g/dL (12.0-16.0); Mean Corpuscular Hemoglobin 23.3 pg (27.0-31.0); Mean Corpuscular Volume 77.1 fL (78.0-98.0); Platelet Count 366 10x3/uL (130-400); Red Blood Cell (RBC) Count 4.46 mill/uL (4.20-5.40); White Blood Cell (WBC) Count 19.29 10x3/uL (4.8-10.8)
[2025-02-04 07:45] LABS: CRP, High Sensitivity at Bryan 4.30 mg/dL (< or = 0.5)
[2025-02-04] MEDS: Aspirin Chewable 81 MG TAB PO SCH (08:42)
[2025-02-04 16:06] LABS: ALT (SGPT) 13 U/L (Less than 34); AST (SGOT) 23 U/L (11-34); Albumin 2.2 g/dL (3.1-4.5); Alkaline Phosphatase 177 U/L (40-110); Anion Gap 17 mmol/L (10-20); BUN (Urea Nitrogen) 8 mg/dL (9.8-20.1); Bilirubin, Total 0.3 mg/dL (0.3-1.2); Calc. Creatinine Clearance 110 mL/min (70-130); Calcium 8.2 mg/dL (7.8-10.44); Carbon Dioxide 25 mmol/L (22-29); Chloride 101 mmol/L (98-107); Globulin 3.1 g/dL (2.4-3.5); Glucose 156 mg/dL (70-105); Potassium 3.2 mmol/L (3.5-5.1); Sodium 140 mmol/L (136-145)
[2025-02-05 06:38] LABS: #Basophils 0.03 10x3/uL (0.0-0.2); #Eosinophils Less than 0.03 10x3/uL (0.0-0.7); #Monocytes 0.86 10x3/uL (0.11-0.59); #Neutrophils 16.29 10x3/uL (1.40-6.50); %Basophils 0.2 % (0.0-1.0); %Eosinophils 0.1 % (0.0-10.0); %Lymphocytes 3.5 % (21.0-51.0); %Monocytes 4.7 % (0.0-10.0); %Neutrophils 89.2 % (42.0-75.0); Hematocrit 39.2 % (36.0-47.0); Hemoglobin 11.6 g/dL (12.0-16.0); Mean Corpuscular Hemoglobin 22.9 pg (27.0-31.0); Mean Corpuscular Volume 77.5 fL (78.0-98.0); Platelet Count 409 10x3/uL (130-400); Red Blood Cell (RBC) Count 5.06 mill/uL (4.20-5.40); White Blood Cell (WBC) Count 18.24 10x3/uL (4.8-10.8)
[2025-02-05 07:03] LABS: ALT (SGPT) 19 U/L (Less than 34); AST (SGOT) 31 U/L (11-34); Albumin 2.3 g/dL (3.1-4.5); Alkaline Phosphatase 188 U/L (40-110); Anion Gap 15 mmol/L (10-20); BUN (Urea Nitrogen) 13 mg/dL (9.8-20.1); Bilirubin, Total 0.3 mg/dL (0.3-1.2); Calc. Creatinine Clearance 102 mL/min (70-130); Calcium 8.3 mg/dL (7.8-10.44); Carbon Dioxide 26 mmol/L (22-29); Chloride 104 mmol/L (98-107); Globulin 2.9 g/dL (2.4-3.5); Glucose 165 mg/dL (70-105); Potassium 3.5 mmol/L (3.5-5.1); Sodium 141 mmol/L (136-145)
[2025-02-05] MEDS: Potassium Bicarbonate/Cit Ac 20 MEQ TAB PER TUBE SCH (08:11)
[2025-02-05] MEDS: Dapagliflozin Propanediol 10 MG TAB PO SCH (11:26)
[2025-02-06 03:57] LABS: Anion Gap 13 mmol/L (10-20); BUN (Urea Nitrogen) 11 mg/dL (9.8-20.1); CRP, High Sensitivity at Bryan 1.65 mg/dL (< or = 0.5); Calc. Creatinine Clearance 120 mL/min (70-130); Calcium 8.1 mg/dL (7.8-10.44); Carbon Dioxide 28 mmol/L (22-29); Chloride 100 mmol/L (98-107); Glucose 167 mg/dL (70-105); Potassium 3.0 mmol/L (3.5-5.1); Sodium 138 mmol/L (136-145)
[2025-02-06] MEDS: Potassium Chloride 20 MEQ in Premix 1 BAG IVPB SCH (06:11)
[2025-02-06] MEDS: Spironolactone 25 MG TAB PO SCH (08:50)
[2025-02-07 06:29] VITALS: BMI 18.1
[2025-02-07 11:13] LABS: Anion Gap 9 mmol/L (10-20); BUN (Urea Nitrogen) 15 mg/dL (9.8-20.1); Calc. Creatinine Clearance 96 mL/min (70-130); Calcium 8.5 mg/dL (7.8-10.44); Carbon Dioxide 32 mmol/L (22-29); Chloride 102 mmol/L (98-107); Glucose 129 mg/dL (70-105); Potassium 3.9 mmol/L (3.5-5.1); Sodium 139 mmol/L (136-145)
[2025-02-07 11:14] LABS: CRP, High Sensitivity at Bryan 1.30 mg/dL (< or = 0.5)
[2025-02-08 06:27] LABS: #Basophils 0.03 10x3/uL (0.0-0.2); #Eosinophils 0.14 10x3/uL (0.0-0.7); #Monocytes 1.17 10x3/uL (0.11-0.59); #Neutrophils 18.14 10x3/uL (1.40-6.50); %Basophils 0.1 % (0.0-1.0); %Eosinophils 0.7 % (0.0-10.0); %Lymphocytes 2.9 % (21.0-51.0); %Monocytes 5.8 % (0.0-10.0); %Neutrophils 89.7 % (42.0-75.0); Hematocrit 42.5 % (36.0-47.0); Hemoglobin 12.3 g/dL (12.0-16.0); Mean Corpuscular Hemoglobin 23.3 pg (27.0-31.0); Mean Corpuscular Volume 80.6 fL (78.0-98.0); Platelet Count 375 10x3/uL (130-400); Red Blood Cell (RBC) Count 5.27 mill/uL (4.20-5.40); White Blood Cell (WBC) Count 20.22 10x3/uL (4.8-10.8)
[2025-02-08 06:41] LABS: Anion Gap 16 mmol/L (10-20); BUN (Urea Nitrogen) 15 mg/dL (9.8-20.1); Calc. Creatinine Clearance 99 mL/min (70-130); Calcium 8.5 mg/dL (7.8-10.44); Carbon Dioxide 28 mmol/L (22-29); Chloride 100 mmol/L (98-107); Glucose 122 mg/dL (70-105); Potassium 3.7 mmol/L (3.5-5.1); Sodium 140 mmol/L (136-145)
[2025-02-08 06:42] LABS: CRP, High Sensitivity at Bryan 1.09 mg/dL (< or = 0.5)
[2025-02-09 08:58] LABS: #Basophils 0.04 10x3/uL (0.0-0.2); #Eosinophils 0.15 10x3/uL (0.0-0.7); #Monocytes 1.97 10x3/uL (0.11-0.59); #Neutrophils 16.67 10x3/uL (1.40-6.50); %Basophils 0.2 % (0.0-1.0); %Eosinophils 0.8 % (0.0-10.0); %Lymphocytes 3.7 % (21.0-51.0); %Monocytes 10.0 % (0.0-10.0); %Neutrophils 84.5 % (42.0-75.0); Hematocrit 42.4 % (36.0-47.0); Hemoglobin 12.4 g/dL (12.0-16.0); Mean Corpuscular Hemoglobin 23.7 pg (27.0-31.0); Mean Corpuscular Volume 81.1 fL (78.0-98.0); Platelet Count 281 10x3/uL (130-400); Red Blood Cell (RBC) Count 5.23 mill/uL (4.20-5.40); White Blood Cell (WBC) Count 19.72 10x3/uL (4.8-10.8)
[2025-02-09 15:48] VITALS: BMI 17.9
[2025-02-10 05:12] LABS: #Basophils Less than 0.03 10x3/uL (0.0-0.2); #Eosinophils 0.13 10x3/uL (0.0-0.7); #Monocytes 1.11 10x3/uL (0.11-0.59); #Neutrophils 10.59 10x3/uL (1.40-6.50); %Basophils 0.2 % (0.0-1.0); %Eosinophils 1.0 % (0.0-10.0); %Lymphocytes 4.9 % (21.0-51.0); %Monocytes 8.8 % (0.0-10.0); %Neutrophils 84.2 % (42.0-75.0); Hematocrit 38.2 % (36.0-47.0); Hemoglobin 11.3 g/dL (12.0-16.0); Mean Corpuscular Hemoglobin 23.8 pg (27.0-31.0); Mean Corpuscular Volume 80.4 fL (78.0-98.0); Platelet Count 321 10x3/uL (130-400); Red Blood Cell (RBC) Count 4.75 mill/uL (4.20-5.40); White Blood Cell (WBC) Count 12.58 10x3/uL (4.8-10.8)
[2025-02-10 05:33] LABS: Anion Gap 12 mmol/L (10-20); BUN (Urea Nitrogen) 13 mg/dL (9.8-20.1); Calc. Creatinine Clearance 104 mL/min (70-130); Calcium 8.3 mg/dL (7.8-10.44); Carbon Dioxide 28 mmol/L (22-29); Chloride 100 mmol/L (98-107); Glucose 84 mg/dL (70-105); Potassium 3.2 mmol/L (3.5-5.1); Sodium 137 mmol/L (136-145)
[2025-02-10 09:31] LABS: INR-International Normal Ratio 1.0; PTT 29.5 sec (22.9-36.1); Prothrombin Time 13.7 sec (12.0-14.7)
[2025-02-10] MEDS: Potassium Chloride 20 MEQ in Premix 1 BAG IVPB SCH (10:55)
[2025-02-10] MEDS: Ondansetron PF 4 MG/2 ML Vial IVP PRN (16:08)
[2025-02-10] MEDS: Famotidine 20 MG TAB PO SCH (21:34)
[2025-02-11 05:13] LABS: #Basophils Less than 0.03 10x3/uL (0.0-0.2); #Eosinophils 0.13 10x3/uL (0.0-0.7); #Monocytes 1.15 10x3/uL (0.11-0.59); #Neutrophils 6.84 10x3/uL (1.40-6.50); %Basophils 0.2 % (0.0-1.0); %Eosinophils 1.5 % (0.0-10.0); %Lymphocytes 6.2 % (21.0-51.0); %Monocytes 13.2 % (0.0-10.0); %Neutrophils 78.2 % (42.0-75.0); Hematocrit 36.6 % (36.0-47.0); Hemoglobin 10.9 g/dL (12.0-16.0); Mean Corpuscular Hemoglobin 23.8 pg (27.0-31.0); Mean Corpuscular Volume 79.9 fL (78.0-98.0); Platelet Count 312 10x3/uL (130-400); Red Blood Cell (RBC) Count 4.58 mill/uL (4.20-5.40); White Blood Cell (WBC) Count 8.74 10x3/uL (4.8-10.8)
[2025-02-11] MEDS: Acetaminophen 325 MG TAB PO PRN (11:41)
[2025-02-11] MEDS: Melatonin 3 MG TAB PO PRN (22:37)
[2025-02-13] MEDS: Enoxaparin 30 MG (0.3 mL) SYRINGE SC SCH (08:53)
[2025-02-13] MEDS: Senokot S 8.6-50 MG TAB PO PRN (20:23)
[2025-02-14] MEDS: Gabapentin 300 MG CAP PO SCH (13:50)
[2025-02-14] MEDS: carBAMazepine 200 MG TAB PO SCH (20:19)
[2025-02-15] MEDS: Meloxicam 15 MG TAB PO SCH (08:31)
[2025-02-15] MEDS: PARoxetine 20 MG TAB PO SCH (08:32)
[2025-02-15 11:29] VITALS: BP 117/77; TEMP 97.8
== END 2025-02-15 13:50 | disposition home health service (06) | DRG 871 ==
LOC: ERS 12:48 → 2SE 17:53 → IMCU/EMU 21:15 → 2NO 02-09 06:14
PROVIDERS: ADMIT Student in an Organized Health Care Education/Training Program; ATTEND Internal Medicine
PROC: 3E03329 Introduction of Other Anti-infective into Peripheral Vein, Percutaneous Approach (ICD-10-PCS; principal; 2025-01-29)
PROC: 3E02340 Introduction of Influenza Vaccine into Muscle, Percutaneous Approach (ICD-10-PCS; 2025-01-29)
PROC: 30233N1 Transfusion of Nonautologous Red Blood Cells into Peripheral Vein, Percutaneous Approach (ICD-10-PCS; 2025-01-30)
DX: A41.9 Sepsis, unspecified organism (principal); G92.9 Unspecified toxic encephalopathy; J18.9 Pneumonia, unspecified organism; N39.0 Urinary tract infection, site not specified; D68.9 Coagulation defect, unspecified; M48.56XA Collapsed vertebra, not elsewhere classified, lumbar region, initial encounter for fracture; E44.0 Moderate protein-calorie malnutrition; E87.0 Hyperosmolality and hypernatremia; I42.9 Cardiomyopathy, unspecified; I50.20 Unspecified systolic (congestive) heart failure; T43.221A Poisoning by selective serotonin reuptake inhibitors, accidental (unintentional), initial encounter; Z51.5 Encounter for palliative care; F31.9 Bipolar disorder, unspecified; F41.9 Anxiety disorder, unspecified; I25.2 Old myocardial infarction; Z88.0 Allergy status to penicillin; Z79.899 Other long term (current) drug therapy; T42.1X1A Poisoning by iminostilbenes, accidental (unintentional), initial encounter; T48.1X1A Poisoning by skeletal muscle relaxants [neuromuscular blocking agents], accidental (unintentional), initial encounter; E87.6 Hypokalemia; D64.9 Anemia, unspecified; D72.829 Elevated white blood cell count, unspecified; R79.83 Abnormal findings of blood amino-acid level; J44.9 Chronic obstructive pulmonary disease, unspecified; F25.9 Schizoaffective disorder, unspecified; I11.0 Hypertensive heart disease with heart failure; B96.20 Unspecified Escherichia coli [E. coli] as the cause of diseases classified elsewhere; R13.10 Dysphagia, unspecified; H57.02 Anisocoria
CPT/HCPCS: 36415; 36416; 36430; 36600; 70450; 71045; 71260; 74018; 74177; 80048; 80053; 80074; 80156; 80202; 80306; 80307; 81240; 81241; 82306; 82550; 82607; 82728; 82805; 83010; 83090; 83540; 83550; 83605; 83615; 83735; 84145; 84155; 84156; 84165; 84166; 84439; 84443; 84481; 84550; 85025; 85046; 85049; 85060; 85300; 85303; 85306; 85307; 85362; 85379; 85384; 85598; 85610; 85730; 86038; 86141; 86147; 86225; 86850; 86880; 86900; 86901; 87040; 87389; 87449; 87636; 87899; 88184; 88185; 88189; 88365; 93306; 94640; 94760; 96374; 96375; 96376; J0692; J0696; J1308; J1630; J1650; J1940; J2060; J2270; J2405; J2916; J2919; J3373; J3430; J3475; J3480; J7042; J7050; P9016; Q9967